=== PATIENT | female | born 1970 | race Caucasian/White ===

== ENCOUNTER 2016-06-29 19:55 | Emergency (ER) | payer MEDICAID ==
[2016-06-29 21:00] LABS: Basophils % (Auto) 0.9 % (0.0-1.8); Eosinophils % (Auto) 1.4 % (0.0-4.3); Mean Corpuscular HGB Conc 28 % (30-34); Platelet Count 173 K/mm3 (140-440); Red Blood Count 4.43 M/mm3 (3.65-5.03); White Blood Count 6.6 K/mm3 (4.5-11.0)
[2016-06-29 21:01] LABS: Blood Urea Nitrogen 12 mg/dL (7-17); Calcium 8.9 mg/dL (8.4-10.2); Carbon Dioxide 22 mmol/L (22-30); Glucose 166 mg/dL (65-100)
[2016-06-29 21:02] LABS: Anion Gap 20 mmol/L; Chloride 100.5 mmol/L (98-107); Potassium 4.5 mmol/L (3.6-5.0); Sodium 138 mmol/L (137-145)
[2016-06-29 21:05] LABS: Hematocrit 27.8 % (30.3-42.9); Hemoglobin 7.9 gm/dl (10.1-14.3); Mean Corpuscular Hemoglobin 18 pg (28-32); Mean Corpuscular Volume 63 fl (79-97)
[2016-06-29 21:06] LABS: Red Cell Distribution Width 20.4 % (13.2-15.2)
--- NOTE | 2016-06-29 23:19 | Cat Scan Report ---
FINAL REPORT PROCEDURE: CT HEAD/BRAIN WO CON TECHNIQUE: Computerized tomography of the head was performed without contrast material. HISTORY: Head trauma. Fall. Headache COMPARISON: No prior studies are available for comparison. FINDINGS: Skull and scalp: Normal. Paranasal sinuses: Normal. Ventricles and subarachnoid spaces: Normal. Cerebrum: No evidence of hemorrhage, acute infarction or mass . Cerebellum and brainstem: No evidence of hemorrhage, acute infarction or mass. Vasculature: Normal. Comments: Tiny punctate hyperdensities in the basal ganglia bilaterally are nonspecific but are most likely incidental physiologic calcifications. IMPRESSION: 1. Overall negative CT brain without contrast with no CT evidence of intracranial hemorrhage or edema or infarct or shift or acute finding. 2. Facial bone CT scan performed at same time as this study is dictated separately.
--- NOTE | 2016-06-29 23:33 | Cat Scan Report ---
FINAL REPORT PROCEDURE: CT FACIAL BONES WO CON TECHNIQUE: Computerized tomography of the facial bones and soft tissues with axial and coronal sections performed from the cranial aspect of the frontal sinuses to the caudal portion of the mandible without contrast material. HISTORY: Facial pain after trauma. Fall. COMPARISON: No prior studies are available for comparison. FINDINGS: Bones: No significant abnormality. Paranasal sinuses: Clear. Soft tissues: No significant abnormality. Other: None. IMPRESSION: 1. There is no CT evidence of facial bone fracture. 2. Brain CT scan performed at same time as this exam is dictated separately.
[2016-06-30] MEDS ORDERED: PERCOCET 5/325 PO ONE (01:59)
[2016-06-30] MEDS ORDERED: BOOSTRIX IM ONE (01:59)
--- NOTE | 2016-06-30 01:59 | Emergency Department Report ---
HPI - General Chief Complaint: Dizziness Time Seen by Provider: 06/30/16 01:21 - HPI HPI: This is a 45-year-old -[place] female presents to the emergency department via EMS with complaint of a syncopal episode and pain to the face and leg. Patient says she was grilling outside last night, Thursday, and started feeling dizzy and then blacked out. Patient fell onto a cement porch and hit the left side of her face and fell on top of her right leg. She is unsure how long she was unconscious. She thought that she would improve on her own and thus waited to come in until earlier this morning. Patient says she is able to ambulate but has pain to the right leg from the hip to the knee. She did not take anything for symptoms prior to presentation. She does not currently have a primary care doctor. No recent travel or sick contacts at home. She denies any illicit drug use or abuse. She has a past medical history of asthma, bipolar disorder. ED Past Medical Hx - Past Medical History Previous Medical History?: Yes Hx Psychiatric Treatment: Yes (BIPOLAR) Hx Asthma: Yes - Surgical History Past Surgical History?: Yes Additional Surgical History: gastric bypass, excess skin removal - Social History Smoking Status: Current Some Day Smoker - Medications Home Medications: Home Medications Medication Instructions Recorded Confirmed Last Taken Type Citalopram [celeXA] 20 mg PO QDAY 04/13/15 08/02/15 Unknown History traZODone [Desyrel] 150 mg PO QHS 04/13/15 08/02/15 Unknown History Ferrous Sulfate [Feosol 325 MG tab] 325 mg PO QDAY #30 tablet 04/14/15 08/02/15 Unknown Rx Cyclobenzaprine HCl [Flexeril 5 MG 5 mg PO Q8HR PRN #15 tablet 04/18/15 Unknown Rx TAB] Ibuprofen [Motrin 800 MG tab] 800 mg PO Q8HR PRN #30 tablet 04/18/15 08/02/15 Unknown Rx ALBUTEROL Inhaler [Proair] 2 puff IH QID PRN 08/02/15 08/02/15 Unknown History traMADol [Ultram 50 MG tab] 50 mg PO Q6HR PRN #15 tablet 06/30/16 Unknown Rx ED Review of Systems ROS: Stated complaint: RT LEG INJURY Other details as noted in HPI Comment: All other systems reviewed and negative Constitutional: denies: chills, fever Eyes: denies: eye pain, eye discharge, vision change ENT: denies: ear pain, throat pain Cardiovascular: denies: chest pain, palpitations Endocrine: no symptoms reported Gastrointestinal: denies: abdominal pain, nausea, diarrhea Genitourinary: denies: urgency, dysuria, discharge Musculoskeletal: arthralgia, myalgia. denies: back pain, joint swelling Skin: other (abrasions). denies: rash, lesions Neurological: denies: headache, weakness, paresthesias Physical Exam - Physical Exam Vital Signs: Vital Signs 06/29/16 06/29/16 06/30/16 20:05 23:49 01:25 Temperature 98.8 F 99.0 F 98 F Pulse Rate 105 H 87 86 Respiratory 18 18 18 Rate Blood Pressure 152/73 144/82 Blood Pressure 112/60 [Left] O2 Sat by Pulse 96 100 100 Oximetry Physical Exam: GENERAL: The patient is well-developed well-nourished. HEENT: Normocephalic. Extraocular motions are intact. Patient has moist mucous membranes. Pupils equal reactive to light bilaterally. No nystagmus. No drooling or trismus. No septal hematoma. NECK: Supple. Trachea is midline. Full range of motion. CHEST/LUNGS: Clear to auscultation. There is no respiratory distress noted. HEART/CARDIOVASCULAR: Regular. There is no tachycardia. There is no gallop rub or murmur. ABDOMEN: Abdomen is soft, nontender. Patient has normal bowel sounds. There is no abdominal distention. SKIN: Patient has a skin avulsion/abrasion to the left forehead. There is an abrasion just lateral to the left side of the nose. NEURO: The patient is awake, alert, and oriented. The patient is cooperative. The patient has no focal neurologic deficits. The patient has normal speech. Cranial nerves II through XII grossly intact. MUSCULOSKELETAL: Patient has some tenderness to palpation to the right hip, thigh and the right knee. Negative anterior and posterior drawer test the right knee. No laxity of valgus or varus stress the right knee. Patient has decreased range of motion of the right lower extremity secondary to pain. ED Course Vital Signs 06/29/16 06/29/16 06/30/16 20:05 23:49 01:25 Temperature 98.8 F 99.0 F 98 F Pulse Rate 105 H 87 86 Respiratory 18 18 18 Rate Blood Pressure 152/73 144/82 Blood Pressure 112/60 [Left] O2 Sat by Pulse 96 100 100 Oximetry ED Medical Decision Making - Lab Data Result diagrams: 06/29/16 20:32 06/29/16 20:32 - EKG Data -: EKG Interpreted by Me EKG shows normal: sinus rhythm, axis, intervals, QRS complexes, ST-T waves Rate: normal - EKG Data When compared to previous EKG there are: previous EKG unavailable Interpretation: normal EKG - Radiology Data Radiology results: report reviewed, image reviewed interpreted by me: X-ray of the right femur does not show any femoral fracture, dislocation, but there is one view of the patella seen with concern for a patellar fracture. CT of the head does not show any acute process including no hemorrhage, mass, shift, diffuse edema or skull fracture. CT facial bones does not show any fracture, dislocation or any acute process. - Medical Decision Making 45-year-old female presents after a syncopal episode 24 hours ago. She now presents with some left-sided facial pain and right lower extremity pain from the hip to the knee. Patient's labs are unremarkable. There is no etiology of the patient's soon-to-be found including a negative troponin, normal thyroid function, no signs of infection and normal electrolytes. CT of the head and facial bones does not show any acute process. X-ray of the right femur does not show any femoral abnormalities but there is concern for possible patellar fracture. Patient will be placed in a knee immobilizer and given crutches as well as an orthopedic referral. Vital signs are stable throughout ED course. Patient appears safe for discharge with this time. She'll return to the ER with any worsening of her symptoms or any acute distress. - Differential Diagnosis vasovagal, orthostatic hypotension, IA, fracture, dislocation Critical Care Time: No Critical care attestation.: If time is entered above; I have spent that time in minutes in the direct care of this critically ill patient, excluding procedure time. ED Disposition Clinical Impression: Right leg pain, Facial pain, Abrasion Right patella fracture Qualifiers: Encounter type: initial encounter Fracture type: closed Fracture morphology: unspecified fracture morphology Fracture alignment: nondisplaced Qualified Code( s): S82.001A - Unspecified fracture of right patella, initial encounter for closed fracture Syncope Qualifiers: Syncope type: unspecified Qualified Code(s): R55 - Syncope and collapse Disposition: DISCHARGED TO HOME OR SELFCARE Is pt being admited?: No Condition: Stable Instructions: Syncope (ED), Patellar Fracture (ED) Additional Instructions: Please follow-up with your primary care doctor in the next few days. I have concern, based on your x-ray, that you may have a fracture to your patella, the bone in the front of the right knee. He will be placed in a knee immobilizer and given crutches as well as a referral for an orthopedist. Follow-up with the orthopedist as soon as possible. Return to the emergency department with any worsening of your symptoms or any acute distress. Prescriptions: traMADol [Ultram 50 MG tab] 50 mg PO Q6HR PRN #15 tablet PRN Reason: Pain Referrals: PRIMARY CARE, [Primary Care Provider] - 3-5 Days ADOLPH BAKER MD [Staff Physician] - 3-5 Days Time of Disposition: 04:29
[2016-06-30] MEDS ORDERED: MORPHINE ONE (02:12)
[2016-06-30] MEDS ORDERED: PERCOCET 5/325 ONE (02:33)
[2016-06-30] MEDS ORDERED: MORPHINE IV ONE ×2 (02:43→03:45)
[2016-06-30 02:50] LABS: Creatine Kinase 328 units/L (30-135)
[2016-06-30 05:11] VITALS: BP 143/79
--- NOTE | 2016-06-30 09:07 | XRay Report ---
Right femur 3 views: History: Fall. Findings: No fracture, periosteal reaction or lytic lesion. Impression: No evidence of acute fracture.
== END 2016-06-30 05:09 | disposition home or self-care (01) ==
LOC: ED 19:55
DX: S82.001A Unspecified fracture of right patella, initial encounter for closed fracture (principal); R55 Syncope and collapse; R51 Headache; J45.909 Unspecified asthma, uncomplicated; F31.9 Bipolar disorder, unspecified; Y99.9 Unspecified external cause status; W18.30XA Fall on same level, unspecified, initial encounter; Y93.9 Activity, unspecified; Y92.9 Unspecified place or not applicable; F17.200 Nicotine dependence, unspecified, uncomplicated
CPT/HCPCS: 29505; 36415; 70450; 70486; 73552; 80048; 82550; 84443; 84484; 85025; 90715; 93005; 93010; 96374; 96376; 99285; J2270

== ENCOUNTER 2016-07-14 00:45 | Emergency (ER) | payer MEDICAID ==
[2016-07-14 03:38] LABS: Hematocrit 26.4 % (30.3-42.9); Hemoglobin 7.3 gm/dl (10.1-14.3); Mean Corpuscular HGB Conc 28 % (30-34); Mean Corpuscular Hemoglobin 18 pg (28-32); Mean Corpuscular Volume 64 fl (79-97); Platelet Count 279 K/mm3 (140-440); Red Blood Count 4.14 M/mm3 (3.65-5.03); Red Cell Distribution Width 21.6 % (13.2-15.2); White Blood Count 4.9 K/mm3 (4.5-11.0)
[2016-07-14 03:54] LABS: Anion Gap 16 mmol/L; BUN/Creatinine Ratio 13.75; Blood Urea Nitrogen 11 mg/dL (7-17); Calcium 8.6 mg/dL (8.4-10.2); Carbon Dioxide 25 mmol/L (22-30); Chloride 102.4 mmol/L (98-107); Glucose 90 mg/dL (65-100); Potassium 3.5 mmol/L (3.6-5.0); Sodium 140 mmol/L (137-145)
[2016-07-14 09:02] LABS: Bilirubin,Urine NEG (Negative); Blood,Urine NEG (Negative); Ketones,Urine NEG (Negative); Leukocyte Esterase,Urine NEG (Negative); Mucus,Urine FEW /HPF; Nitrite,Urine NEG (Negative); Protein,Urine <15 mg/dL mg/dL (Negative); WBC,Urine < 1.0 /HPF (0.0-6.0)
[2016-07-14] MEDS ORDERED: NORCO 5/325 PO ONE (09:54)
--- NOTE | 2016-07-14 09:58 | Emergency Department Report ---
ED Extremity Problem HPI - General Chief complaint: Extremity Problem,Nontraumatic Stated complaint: LEFT LEG/LOWER BACK PAIN Time Seen by Provider: 07/14/16 09:47 Source: patient Mode of arrival: Ambulatory Limitations: No Limitations - History of Present Illness Initial comments: 45-year-old female presents to the emergency department complaining of left leg pain and swelling for the past 2 days. Patient denies injury. Patient describes an aching pain in her left leg that radiates into her left lower back. Patient reports a history of a blood clot in the left leg that was diagnosed approximately one year ago. Patient states that she was started on Eliquis and is continuing to take this medication at this time. She denies chest pain or difficulty breathing. There are no other complaints. MD Complaint: extremity pain, extremity swelling -: Gradual, days(s) (2) Location: left, lower extremity History of Same: Yes Radiation: proximal Severity scale (0 -10): 3 Quality: aching Consistency: constant Improves with: nothing Worsens with: nothing Associated Symptoms: denies other symptoms - Related Data Home Medications Medication Instructions Recorded Confirmed Last Taken Citalopram [celeXA] 20 mg PO QDAY 04/13/15 07/14/16 Unknown traZODone [Desyrel] 150 mg PO QHS 04/13/15 07/14/16 Unknown ALBUTEROL Inhaler [Proair] 2 puff IH QID PRN 08/02/15 07/14/16 Unknown Previous Rx's Medication Instructions Recorded Last Taken Type Ferrous Sulfate [Feosol 325 MG tab] 325 mg PO QDAY #30 tablet 04/14/15 Unknown Rx Cyclobenzaprine HCl [Flexeril 5 MG 5 mg PO Q8HR PRN #15 tablet 04/18/15 Unknown Rx TAB] Ibuprofen [Motrin 800 MG tab] 800 mg PO Q8HR PRN #30 tablet 04/18/15 Unknown Rx traMADol [Ultram 50 MG tab] 50 mg PO Q6HR PRN #15 tablet 06/30/16 Unknown Rx Acetaminophen with Codeine 1 tab PO Q6HR PRN #30 tab 07/14/16 Unknown Rx [Acetaminophen-Codeine #4 TAB] Allergies Allergy/AdvReac Type Severity Reaction Status Date / Time morphine Allergy Rash Verified 07/14/16 02:42 Penicillins AdvReac Unknown Verified 04/13/15 23:10 ED Review of Systems ROS: Stated complaint: LEFT LEG/LOWER BACK PAIN Other details as noted in HPI Comment: All other systems reviewed and negative Musculoskeletal: as per HPI, back pain ED Past Medical Hx - Past Medical History Previous Medical History?: Yes Hx Deep Vein Thrombosis: Yes (Blood clot left leg January 2016) Hx Psychiatric Treatment: Yes (BIPOLAR) Hx Asthma: Yes - Surgical History Past Surgical History?: Yes Additional Surgical History: gastric bypass, excess skin removal - Family History Family history: no significant - Social History Smoking Status: Current Every Day Smoker Substance Use Type: None - Medications Home Medications: Home Medications Medication Instructions Recorded Confirmed Last Taken Type Citalopram [celeXA] 20 mg PO QDAY 04/13/15 07/14/16 Unknown History traZODone [Desyrel] 150 mg PO QHS 04/13/15 07/14/16 Unknown History Ferrous Sulfate [Feosol 325 MG tab] 325 mg PO QDAY #30 tablet 04/14/15 07/14/16 Unknown Rx Cyclobenzaprine HCl [Flexeril 5 MG 5 mg PO Q8HR PRN #15 tablet 04/18/15 Unknown Rx TAB] Ibuprofen [Motrin 800 MG tab] 800 mg PO Q8HR PRN #30 tablet 04/18/15 07/14/16 Unknown Rx ALBUTEROL Inhaler [Proair] 2 puff IH QID PRN 08/02/15 07/14/16 Unknown History traMADol [Ultram 50 MG tab] 50 mg PO Q6HR PRN #15 tablet 06/30/16 07/14/16 Unknown Rx Acetaminophen with Codeine 1 tab PO Q6HR PRN #30 tab 07/14/16 Unknown Rx [Acetaminophen-Codeine #4 TAB] ED Physical Exam - General Limitations: No Limitations General appearance: alert, in no apparent distress, obese - Head Head exam: Present: atraumatic, normocephalic - Eye Eye exam: Present: normal appearance, PERRL, EOMI - ENT ENT exam: Present: normal exam, normal orophraynx, mucous membranes moist - Neck Neck exam: Present: normal inspection, full ROM. Absent: tenderness - Respiratory Respiratory exam: Present: normal lung sounds bilaterally. Absent: respiratory distress - Cardiovascular Cardiovascular Exam: Present: regular rate, normal rhythm, normal heart sounds - GI/Abdominal GI/Abdominal exam: Present: soft, normal bowel sounds. Absent: distended, tenderness - Extremities Exam Extremities exam: Present: normal inspection, full ROM, calf tenderness (left), other (no definite edema noted. No erythema.) - Back Exam Back exam: Present: normal inspection, full ROM. Absent: tenderness - Neurological Exam Neurological exam: Present: alert, oriented X3. Absent: motor sensory deficit - Skin Skin exam: Present: warm, dry, intact ED Course Vital Signs 07/14/16 07/14/16 07/14/16 02:43 08:30 08:53 Temperature 98.4 F Pulse Rate 78 66 Respiratory 18 16 Rate Blood Pressure 123/67 Blood Pressure 114/60 [Left] O2 Sat by Pulse 98 99 99 Oximetry 07/14/16 08:54 Temperature Pulse Rate Respiratory 16 Rate Blood Pressure Blood Pressure [Left] O2 Sat by Pulse 99 Oximetry ED Medical Decision Making - Lab Data Result diagrams: 07/14/16 03:12 07/14/16 03:12 - Radiology Data Radiology results: image reviewed Doppler ultrasound of the left lower extremity reveals no evidence of acute DVT. - Medical Decision Making Lab and imaging results reviewed and discussed with the patient. Patient reports feeling better with medication. Patient will be discharged home at this time. - Differential Diagnosis leg pain, DVT Critical care attestation.: If time is entered above; I have spent that time in minutes in the direct care of this critically ill patient, excluding procedure time. ED Disposition Clinical Impression: Left leg pain Disposition: DISCHARGED TO HOME OR SELFCARE Is pt being admited?: No Condition: Stable Instructions: Arthralgia (ED) Prescriptions: Acetaminophen with Codeine [Acetaminophen-Codeine #4 TAB] 1 tab PO Q6HR PRN #30 tab PRN Reason: Pain Referrals: JAMEEL HAWKINS NP-C [Primary Care Provider] - 3-5 Days Time of Disposition: 13:26
[2016-07-14] MEDS ORDERED: DILAUDID ONE (12:37)
[2016-07-14] MEDS ORDERED: DILAUDID IM ONE (12:46)
[2016-07-14 13:39] VITALS: BP 132/47
== END 2016-07-14 13:39 | disposition home or self-care (01) ==
LOC: ED 00:45
DX: M79.605 Pain in left leg (principal); J45.909 Unspecified asthma, uncomplicated; F31.9 Bipolar disorder, unspecified; F17.200 Nicotine dependence, unspecified, uncomplicated; Z86.718 Personal history of other venous thrombosis and embolism; Z88.0 Allergy status to penicillin; Z88.5 Allergy status to narcotic agent
CPT/HCPCS: 36415; 80048; 81001; 81025; 85027; 93971; 96372; 99284; J1170

== ENCOUNTER 2016-07-21 00:59 | Emergency (ER) | payer MEDICAID ==
[2016-07-21] MEDS ORDERED: NACL 0.9% 1000 ML 1,000 ML IV ONE (02:08)
[2016-07-21 02:54] LABS: INR 1.09 (0.87-1.13)
[2016-07-21 02:55] LABS: Partial Thromboplastin Time 32.2 Sec. (24.2-36.6)
[2016-07-21 03:03] LABS: Alanine Aminotransferase 12 units/L (7-56); Albumin 3.6 g/dL (3.9-5); Alkaline Phosphatase 55 units/L (35-129); Anion Gap 16 mmol/L; BUN/Creatinine Ratio 23.33; Bilirubin,Total 0.2 mg/dL (0.1-1.2); Blood Urea Nitrogen 14 mg/dL (7-17); Calcium 8.8 mg/dL (8.4-10.2); Carbon Dioxide 25 mmol/L (22-30); Glucose 94 mg/dL (65-100); Lipase 37 units/L (13-60); Potassium 4.4 mmol/L (3.6-5.0); Sodium 142 mmol/L (137-145); Total Protein 7.2 g/dL (6.3-8.2)
[2016-07-21 03:34] LABS: Bilirubin,Urine NEG (Negative); Blood,Urine NEG (Negative); Ketones,Urine NEG (Negative); Leukocyte Esterase,Urine NEG (Negative); Mucus,Urine FEW /HPF; Nitrite,Urine NEG (Negative); Protein,Urine <15 mg/dL mg/dL (Negative); RBC,Urine < 1.0 /HPF (0.0-6.0); WBC,Urine < 1.0 /HPF (0.0-6.0)
[2016-07-21 03:38] LABS: Basophils % (Auto) 1.4 % (0.0-1.8); Eosinophils % (Auto) 2.5 % (0.0-4.3); Mean Corpuscular HGB Conc 28 % (30-34); Platelet Count 200 K/mm3 (140-440); Red Blood Count 4.23 M/mm3 (3.65-5.03); White Blood Count 3.9 K/mm3 (4.5-11.0)
[2016-07-21 03:48] LABS: Hematocrit 26.9 % (30.3-42.9); Hemoglobin 7.5 gm/dl (10.1-14.3); Mean Corpuscular Volume 64 fl (79-97)
[2016-07-21 03:49] LABS: Mean Corpuscular Hemoglobin 18 pg (28-32); Red Cell Distribution Width 20.8 % (13.2-15.2)
[2016-07-21] MEDS ORDERED: NORCO 5/325 PO ONE ×2 (08:03→12:08)
--- NOTE | 2016-07-21 08:05 | Emergency Department Report ---
HPI - General Chief Complaint: GI Bleed Time Seen by Provider: 07/21/16 07:44 - HPI HPI: This is a 45-year-old Afro[place] female presents to the emergency department by EMS from home with complaint of a 2 day history of nausea, vomiting and blood in the emesis. The patient says that she had about 1-2 episodes of vomiting each day. She has some generalized abdominal discomfort with it. She denies any fever, back pain, vaginal bleeding, rectal bleeding, discharge or dysuria. She is not taken anything for symptoms prior to presentation. She has a history of iron deficiency anemia, previous DVT on Eloquist, asthma, bipolar disorder and a previous surgical history of gastric bypass and excessive skin removal. She has not seen her primary care doctor regarding her symptoms. No recent travel or sick contacts at home. ED Past Medical Hx - Past Medical History Previous Medical History?: Yes Hx Deep Vein Thrombosis: Yes (Blood clot left leg January 2016) Hx Psychiatric Treatment: Yes (BIPOLAR) Hx Asthma: Yes - Surgical History Past Surgical History?: Yes Additional Surgical History: gastric bypass, excess skin removal - Social History Smoking Status: Current Every Day Smoker Substance Use Type: None - Medications Home Medications: Home Medications Medication Instructions Recorded Confirmed Last Taken Type traZODone [Desyrel] 150 mg PO QHS 04/13/15 07/21/16 1 Day Ago History ALBUTEROL Inhaler [Proair] 2 puff IH QID PRN 08/02/15 07/21/16 1 Day Ago History Acetaminophen with Codeine 1 tab PO Q6HR PRN #30 tab 07/14/16 07/21/16 1 Day Ago Rx [Acetaminophen-Codeine #4 TAB] Famotidine [Pepcid] 20 mg PO BID #20 tablet 07/21/16 Unknown Rx Ondansetron [Zofran Odt] 4 mg PO Q8H PRN #10 tab.rapdis 07/21/16 Unknown Rx traMADol [Ultram] 50 mg PO Q6HR PRN #10 tablet 07/21/16 Unknown Rx ED Review of Systems ROS: Stated complaint: N/V Other details as noted in HPI Comment: All other systems reviewed and negative Constitutional: denies: chills, fever Eyes: denies: eye pain, eye discharge, vision change ENT: denies: ear pain, throat pain Respiratory: denies: cough, shortness of breath, wheezing Cardiovascular: denies: chest pain, palpitations Gastrointestinal: abdominal pain, nausea, vomiting, hematemesis Genitourinary: denies: urgency, dysuria, discharge Musculoskeletal: denies: back pain, joint swelling, arthralgia Skin: denies: rash, lesions Neurological: denies: headache, weakness, paresthesias Physical Exam - Physical Exam Vital Signs: Vital Signs 07/21/16 02:03 Temperature 98.4 F Pulse Rate 72 Respiratory 18 Rate Blood Pressure 131/61 O2 Sat by Pulse 98 Oximetry Physical Exam: GENERAL: The patient is well-developed well-nourished. HEENT: Normocephalic. Atraumatic. Extraocular motions are intact. Patient has moist mucous membranes. Pupils equal reactive to light bilaterally. NECK: Supple. Trachea is midline. CHEST/LUNGS: Clear to auscultation. There is no respiratory distress noted. HEART/CARDIOVASCULAR: Regular. There is no tachycardia. There is no gallop rub or murmur. ABDOMEN: Abdomen is soft. Generalized mild tenderness to palpation of the abdomen. No guarding or rebound tenderness. Patient has normal bowel sounds. There is no abdominal distention. SKIN: Skin is warm and dry. NEURO: The patient is awake, alert, and oriented. The patient is cooperative. The patient has no focal neurologic deficits. The patient has normal speech. MUSCULOSKELETAL: There is no tenderness or deformity. There is no limitation range of motion. There is no evidence of acute injury. ED Course Vital Signs 07/21/16 02:03 Temperature 98.4 F Pulse Rate 72 Respiratory 18 Rate Blood Pressure 131/61 O2 Sat by Pulse 98 Oximetry ED Medical Decision Making - Lab Data Result diagrams: 07/21/16 02:17 07/21/16 02:17 - Radiology Data Radiology results: report reviewed, image reviewed interpreted by me: Abdominal x-ray shows some nonspecific nonobstructive bowel gas. CT of the abdomen and pelvis with IV contrast does not show any acute process. - Medical Decision Making 45-year-old female presents the emergency department with a complaint of 2 days of hematemesis that occurred with one episode of vomiting each day as well as some generalized abdominal discomfort. Patient's labs are mostly unremarkable except for the anemia. However the patient was here 4 days ago and her hemoglobin level is higher than that. On top of that, the patient has a history of iron deficiency anemia. The rest of her labs are unremarkable including the belly labs which do not show any elevation in bilirubin, lipase or LFTs. Urinalysis does not show any UTI the patient is not . Abdominal x-ray was done that does not show any acute process. A CT of the abdomen and pelvis with IV contrast was also done due to her complaint of significant discomfort but it also did not show any acute abnormalities. There is been no further nausea or vomiting in the emergency department. The patient appears stable. She was discharged home with Pepcid, pain medication and Zofran ODT for nausea. She was given referrals for GI as she may need some type of endoscopy or further evaluation of the future. She has been encouraged to return to the emergency department with any worsening of her symptoms or any acute distress. - Differential Diagnosis gastritis, colitis, diverticulitis, esophageal varices Critical Care Time: No Critical care attestation.: If time is entered above; I have spent that time in minutes in the direct care of this critically ill patient, excluding procedure time. ED Disposition Clinical Impression: Hematemesis Qualifiers: Nausea presence: with nausea Qualified Code(s): K92.0 - Hematemesis; R11.0 - Nausea Nausea & vomiting Qualifiers: Vomiting type: unspecified Vomiting Intractability: non-intractable Qualified Code(s): R11.2 - Nausea with vomiting, unspecified Abdominal pain Qualifiers: Abdominal location: generalized Qualified Code(s): R10.84 - Generalized abdominal pain Disposition: DISCHARGED TO HOME OR SELFCARE Is pt being admited?: No Condition: Stable Instructions: Acute Nausea and Vomiting (ED), Acute Abdominal Pain (ED) Additional Instructions: Please follow-up with a primary care doctor in the next few days. I referral for a local commercial underwriter, Dr. Henry, to follow up regarding your abdominal discomfort and blood seen in the vomit. Return to the emergency department with any worsening of your symptoms or any acute distress. Prescriptions: Famotidine [Pepcid] 20 mg PO BID #20 tablet Ondansetron [Zofran Odt] 4 mg PO Q8H PRN #10 tab.rapdis PRN Reason: Nausea traMADol [Ultram] 50 mg PO Q6HR PRN #10 tablet PRN Reason: Pain Referrals: PRIMARY CARE, [Primary Care Provider] - 3-5 Days IRLANDA HENRY MD [Staff Physician] - 3-5 Days Forms: Accompanied Note Time of Disposition: 10:08
--- NOTE | 2016-07-21 08:32 | Admit Criteria Form ---
Admission Criteria Documentation: GASTROINTESTINAL BLEEDING Clinical Indications for Inpatient Care (Place 'X' for any and all applicable criteria): Ongoing inpatient care may be indicated for gastrointestinal bleeding with ANY ONE of the following (4)(20)(21)(22)(23)(24): [ ]I. Active bleeding (eg, fresh voluminous blood in emesis or nasogastric aspirate, or per rectum) [ ]II. Hemodynamic instability [ ]III. Anticoagulation therapy or coagulopathy ((eg, advanced liver disease, irreversible anticoagulation) [ ]IV. Ischemic colitis (22) [ ]V. Endoscopy showing arterial bleeding, adherent clot, nonbleeding visible vessel, varices, flat red spots, ulcer size greater than 2 cm, or portal hypertensive gastropathy [ ]. High-risk low platelet count [ ]VII. Anemia requiring inpatient care as indicated by ANY ONE of the following a)[ ] Cognitive impairment b)[ ] Syncope c)[ ] Heart failure d)[ ] Chest pain e)[ ] Dyspnea f)[ ] Other findings suggesting inadequate perfusion (eg, peripheral or myocardial ischemia, end organ dysfunction) [ ]VIII. High-risk low platelet count [ ]IX. Suspected variceal cause of bleeding as indicated by ANY ONE of the following(27)(28): a)[ ] Known varices b)[ ] Hepatomegaly or splenomegaly c)[ ] Ascites d)[ ] Jaundice or scleral icterus e)[ ] History of liver disease (eg, cirrhosis) f)[ ] Physical findings of portal hypertension (eg, caput medusa) g)[ ] Comorbid disorder indicating risk for portal vein thrombosis (eg , abdominal surgery, sepsis, shock, exchange transfusion, prior umbilical vein catheterization) Extended stay may be needed until ALL of the following are present(20)(38)(47): [ ]a) Hemodynamic stability [ ]b) No evidence of active bleeding (eg, stable Hematocrit) [ ]c) Platelet count, prothrombin time, and partial thromboplastin time acceptable for next level of care [ ]d) Surgical or other acute intervention not needed [ ]e) Oral hydration and diet tolerated The original [facility] content created by Agustin Soto has been revised. The portions of the content which have been revised are identified through the use of italic text or in bold, and Agustin Soto has neither reviewed nor approved the modified material. All other unmodified content is copyright [facility]. Please see references footnoted in the original [facility] edition 2016
[2016-07-21] MEDS ORDERED: NACL ONE (10:10)
--- NOTE | 2016-07-21 10:49 | XRay Report ---
ABDOMEN, 2 views: History: Abdominal pain. There is no evidence of free air beneath the diaphragms. The gas pattern within the abdomen is unremarkable. There is no evidence of bowel dilatation, significant air-fluid levels, or pathologic calcifications. Organ shadows are unremarkable. IMPRESSION: Unremarkable abdomen.
[2016-07-21] MEDS ORDERED: NACL 0.9% 1000 ML 1,000 ML ONE (11:07)
--- NOTE | 2016-07-21 11:17 | Cat Scan Report ---
CT ABDOMEN AND PELVIS WITH CONTRAST INDICATION: Abdominal pain. COMPARISON: 08/02/2015. FINDINGS: Abdomen and pelvis CT performed following intravenous administration of 100 cc of Omnipaque 300. LUNG BASES: Mild nonspecific distal esophageal wall thickening, not excluded for gastroesophageal reflux and/or hiatal hernia, amongst others. ABDOMEN: Approximately 2.5 cm left upper renal cyst, gastric bypass changes and small bowel anastomosis in the left hemiabdomen again noted. Some streak artifact. Liver, spleen, gallbladder, pancreas, adrenals, aorta, IVC and kidneys otherwise within normal limits. No ascites or significant adenopathy. Nonopacified GI tract evaluation limited, though grossly nonobstructive. Colon unremarkable. PELVIS: Uterus again noted in the right hemipelvis with now grossly unremarkable adnexa. Unremarkable urinary bladder. Rectosigmoid stool. No free fluid or significant adenopathy. Mild levoscoliosis apex about L4-L5. Multilevel spinal degenerative changes, including lower lumbar disc narrowing, spurring and suspected L4-L5 neural foraminal narrowing. Predominantly right-sided lower thoracic spine osteophytes also seen. Bilateral SI joint degenerative changes with sclerosis inferiorly and spurring. CONCLUSION: No acute CT abnormality with various incidental findings, as above. Thank you for the opportunity to participate in this patient's care.
[2016-07-21 12:25] VITALS: BP 102/62
== END 2016-07-21 12:25 | disposition home or self-care (01) ==
LOC: ED 00:59
DX: K92.0 Hematemesis (principal); R11.2 Nausea with vomiting, unspecified; R10.84 Generalized abdominal pain; F31.9 Bipolar disorder, unspecified; J45.909 Unspecified asthma, uncomplicated; F17.200 Nicotine dependence, unspecified, uncomplicated; Z86.718 Personal history of other venous thrombosis and embolism
CPT/HCPCS: 36415; 74020; 74177; 80053; 81001; 81025; 83690; 85025; 85610; 85730; 86850; 86900; 86901; 93005; 93010; 96360; 99285; J7030; Q9967

== ENCOUNTER 2017-08-26 14:13 | Inpatient (IN) | payer MEDICAID ==
[2017-08-26] MEDS ORDERED: ZOFRAN IV PRN (14:53)
[2017-08-26] MEDS ORDERED: SODIUM CHLORIDE FLUSH SYRINGE 10 ML IV PRN (14:53)
[2017-08-26] MEDS ORDERED: TYLENOL PO PRN (14:53)
--- NOTE | 2017-08-26 14:53 | History and Physical Report ---
History of Present Illness Chief complaint: I feel sick History of present illness: 46 YO Female with Obesity, Asthma, Bipolar, Nicotine Dependence, LLE DVT not currently on anticoagulation admitted to Medical Stabilization Unit for ETOH withdrawl and medical stabilization. Pt states that she drinks dark liquor, and beer daily. Pt states that he last drink was 24 hours ago. Pt acknowledges feeling restless, nauseated, anxious, shaking, and feeling like her heart is beating fast. Pt also acknowledges abdominal discomfort. Pt denies fever, chills , CP, syncope, trauma, productive cough, or recent ill contacts. Pt seen and evaluated upon arrival and found to have Alcohol withdrawl. Pt admitted to MSU and initiated on ETOH withdrawl protocol. Past History Past Medical History: DVT, other (Obesity, asthma, ) Past Surgical History: Other (gastric bypass) Social history: smoking Family history: hypertension Medications and Allergies Allergies Allergy/AdvReac Type Severity Reaction Status Date / Time morphine Allergy Rash Verified 07/14/16 02:42 Penicillins AdvReac Unknown Verified 04/13/15 23:10 Home Medications Medication Instructions Recorded Confirmed Last Taken Type traZODone [Desyrel] 50 mg PO QHS 04/13/15 08/26/17 08/23/17 History 50 mg Citalopram [celeXA] 20 mg PO QDAY 08/26/17 08/26/17 08/23/17 History 20 mg Review of Systems Constitutional: no weight loss, no weight gain, no fever, no chills Ears, nose, mouth and throat: no ear pain, no ear discharge, no tinnitis, no decreased hearing, no nose pain, no nasal congestion Breasts: no change in shape, no swelling, no mass Cardiovascular: no chest pain, no orthopnea, no palpitations, no rapid/ irregular heart beat, no edema Respiratory: no cough, no cough with sputum, no excessive sputum, no hemoptysis Gastrointestinal: nausea Genitourinary Female: no pelvic pain, no flank pain, no menorrhagia, no dysuria , no urinary frequency, no urgency Rectal: no pain, no incontinence, no bleeding Musculoskeletal: no neck pain, no shooting arm pain, no arm numbness/tingling, no low back pain, no shooting leg pain, no leg numbness/tingling Integumentary: no rash, no pruritis, no redness, no sores, no wounds Neurological: no head injury, no transient paralysis, no paralysis, no weakness , no parathesias, no numbness, no tingling, no seizures, no syncope Psychiatric: anxiety, sleep disturbances, insomnia, irritability, no change in appetite, no suicidal ideation, no disorientation, no anhedonia Endocrine: no cold intolerance, no heat intolerance, no polyphagia, no excessive thirst, no polydipsia, no polyuria, no nocturia Hematologic/Lymphatic: no easy bruising, no easy bleeding, no lymphadenopathy, no lymphedema Allergic/Immunologic: no urticaria, no allergic rhinitis, no wheezing, no anaphylaxis Exam - Constitutional General appearance: Present: mild distress, obese, disheveled - EENT Eyes: Present: PERRL ENT: hearing intact, clear oral mucosa - Neck Neck: Present: supple, normal ROM - Respiratory Respiratory effort: normal Respiratory: bilateral: CTA - Cardiovascular Rhythm: other (tachycardia) Heart Sounds: Present: S1 & S2. Absent: rub, click - Extremities Extremities: pulses symmetrical, No edema Peripheral Pulses: within normal limits - Abdominal General gastrointestinal: Present: soft, non-tender, non-distended, normal bowel sounds Female genitourinary: Present: normal - Integumentary Integumentary: Present: clear, warm, dry - Musculoskeletal Musculoskeletal: gait normal, strength equal bilaterally - Psychiatric Psychiatric: appropriate mood/affect, intact judgment & insight - Neurologic Neurologic: CNII-XII intact, moves all extremities Assessment and Plan - Patient Problems (1) Alcohol withdrawal Current Visit: Yes Status: Acute Qualifiers: Complication of substance-induced condition: with perceptual disturbance Qualified Code(s): F10.232 - Alcohol dependence with withdrawal with perceptual disturbance Plan to address problem: Admit to MSU, Ativan taper, IVF resuscitation, IV banana bag, cbc, cmp, (2) Nicotine dependence with withdrawal Current Visit: Yes Status: Acute Qualifiers: Nicotine product type: cigarettes Qualified Code(s): F17.213 - Nicotine dependence, cigarettes, with withdrawal Plan to address problem: supportive care, pt declines to pick quit date, smoking cessation counseling. (3) Bipolar 1 disorder Current Visit: Yes Status: Acute Plan to address problem: supportive care. continue current therapy, (4) Abdominal pain Current Visit: Yes Status: Acute Qualifiers: Abdominal location: generalized Qualified Code(s): R10.84 - Generalized abdominal pain Plan to address problem: suspected secondary to ETOH gastritis, CT ABdomen pelvis. (5) DVT prophylaxis Current Visit: Yes Status: Acute Plan to address problem: scd to ble while in bed
[2017-08-26] MEDS ORDERED: VISTARIL PO PRN (14:56)
[2017-08-26] MEDS ORDERED: VITAMIN B-1 100 MG, FOLVITE 1 MG, INFUVITE 10 ML in NACL 0.9% 1000 ML 2,000 ML IV ONE (15:01)
[2017-08-26] MEDS ORDERED: ZOFRAN ODT PO PRN (15:01)
[2017-08-26] MEDS ORDERED: PROAIR IH PRN (15:01)
[2017-08-26] MEDS ORDERED: PROVENTIL IH PRN (18:13)
[2017-08-26] MEDS: ATIVAN IV PRN ×3 (18:29→22:23)
[2017-08-26] MEDS: ATIVAN PO SCH (20:37)
[2017-08-26] MEDS: PEPCID PO SCH (22:24)
[2017-08-26] MEDS: DESYREL PO SCH (22:24)
[2017-08-26] MEDS: SODIUM CHLORIDE FLUSH SYRINGE 10 ML IV SCH (22:24)
[2017-08-27] MEDS: ATIVAN PO SCH ×3 (02:48→14:53)
[2017-08-27] MEDS: SODIUM CHLORIDE FLUSH SYRINGE 10 ML IV SCH ×2 (09:47→22:41)
[2017-08-27] MEDS: PEPCID PO SCH ×2 (09:51→22:41)
[2017-08-27] MEDS: celeXA PO SCH (09:52)
--- NOTE | 2017-08-27 10:18 | Progress Note ---
Assessment and Plan Assessment and plan: 46 YO Female with Obesity, Asthma, Bipolar, Nicotine Dependence, LLE DVT not currently on anticoagulation admitted to Medical Stabilization Unit for ETOH withdrawl and medical stabilization. Pt states that she drinks dark liquor, and beer daily. Pt states that he last drink was 24 hours ago. Pt acknowledges feeling restless, nauseated, anxious, shaking, and feeling like her heart is beating fast. Pt also acknowledges abdominal discomfort. Pt denies fever, chills , CP, syncope, trauma, productive cough, or recent ill contacts. Pt seen and evaluated upon arrival and found to have Alcohol withdrawl. Pt admitted to MSU and initiated on ETOH withdrawl protocol. (1) Acute Alcohol withdrawal Continue MSU stay and protocol, Ativan taper, IVF resuscitation, IV banana bag, cbc, cmp, (2) Nicotine dependence with withdrawal supportive care, pt declines to pick quit date, smoking cessation counseling. (3) Bipolar 1 disorder supportive care. continue current therapy, (4) Microcytic Anemia iron supplementation. Patient has planned outpatient colonoscopy for screening. (5)Abdominal pain/chronic pain syndrome suspected secondary to ETOH gastritis, C Per patient recent CT abdmen-negative very agitated and not agreeable to examination Diffuse abdominal pain on limited exam, states "its been a long time" but not willing to quantify, when asked longer than 1 year she said shorter, is currently under treatment with a physician and is planned for colonoscopy. She said percocet did not help and she quit taking it. (6) Morbid Obesity WEIGHTLOSS COUNSELLING PROVIDED 15 MINS SPENT. PT verablized understanding (7)DVT prophylaxis Current Visit: Yes Status: Acute Plan to address problem: scd to ble while in bed History Interval history: Patient seen and examined, still complaining of abdominal pain. The patient presented to [facility] for initiation of treatment for acute alcohol withdrawal. This morning she still complains of nasuea, anxous, some tremeor and restlessness, although with some noted improvement. she remains alert and oriented. Hospitalist Physical - Physical exam Narrative exam: - Constitutional General appearance: Present: mild distress, obese, disheveled - EENT Eyes: Present: PERRL ENT: hearing intact, clear oral mucosa - Neck Neck: Present: supple, normal ROM - Respiratory Respiratory effort: normal Respiratory: bilateral: CTA - Cardiovascular Rhythm: other (tachycardia) Heart Sounds: Present: S1 & S2. Absent: rub, click - Extremities Extremities: pulses symmetrical, No edema Peripheral Pulses: within normal limits - Abdominal General gastrointestinal: Present: soft, diffused tender, non-distended, normal bowel sounds Female genitourinary: Present: normal - Integumentary Integumentary: Present: clear, warm, dry - Musculoskeletal Musculoskeletal: gait normal, strength equal bilaterally - Psychiatric Psychiatric: appropriate mood/affect, intact judgment & insight - Neurologic Neurologic: CNII-XII intact, moves all extremities - Constitutional Vitals: Temp Pulse Resp BP Pulse Ox 97.8 F 72 20 101/46 94 08/27/17 08:14 08/27/17 08:14 08/27/17 08:14 08/27/17 08:14 08/27/17 08:14 General appearance: Present: mild distress, obese, disheveled Results - Labs CBC & Chem 7: 08/27/17 10:06 08/27/17 10:06
[2017-08-27 10:34] LABS: Mean Corpuscular HGB Conc 29 % (30-34); Platelet Count 277 K/mm3 (140-440); Red Blood Count 4.27 M/mm3 (3.65-5.03)
[2017-08-27 10:43] LABS: Hematocrit 28.3 % (30.3-42.9); Hemoglobin 8.3 gm/dl (10.1-14.3); Mean Corpuscular Hemoglobin 19 pg (28-32); Mean Corpuscular Volume 66 fl (79-97); Red Cell Distribution Width 25.3 % (13.2-15.2)
[2017-08-27 10:58] LABS: Alanine Aminotransferase 10 units/L (7-56); Albumin 3.5 g/dL (3.9-5); BUN/Creatinine Ratio 20; Blood Urea Nitrogen 12 mg/dL (7-17); Calcium 8.3 mg/dL (8.4-10.2); Hemolysis Index 12
[2017-08-27 13:10] LABS: Anisocytosis 2+; Total Cells Counted 100
[2017-08-27 13:11] LABS: Hypochromasia 2+; Platelet Estimate Cons
[2017-08-27] MEDS ORDERED: ULTRAM PO PRN (13:15)
[2017-08-27] MEDS ORDERED: ATIVAN PO SCH (14:59)
[2017-08-27] MEDS: DESYREL PO SCH (22:41)
[2017-08-28 08:27] VITALS: BP 90/37
--- NOTE | 2017-08-28 09:18 | Discharge Summary ---
Providers - Providers Date of Admission: 08/26/17 15:36 Attending physician: GIOVANNY BRITO MD Primary care physician: [employer] Hospitalization Hospital course: 46 YO Female with Obesity, Asthma, Bipolar, Nicotine Dependence, LLE DVT not currently on anticoagulation admitted to Medical Stabilization Unit for ETOH withdrawl and medical stabilization. Pt states that she drinks dark liquor, and beer daily. Pt states that he last drink was 24 hours ago. Pt acknowledges feeling restless, nauseated, anxious, shaking, and feeling like her heart is beating fast. Pt also acknowledges abdominal discomfort. Pt denies fever, chills , CP, syncope, trauma, productive cough, or recent ill contacts. Pt seen and evaluated upon arrival and found to have Alcohol withdrawl. Pt admitted to MSU and initiated on ETOH withdrawl protocol. Patient this am does not demonstrate any further withdrawal symptoms. she also unfortunately has been smoking in the room despite multiple warnings against the same. The odor is quit pervasive on entering her room this morning to me. Continue management based on outpatient recommendation and discharge plan by the team has been discussed with the patient and she verbalized understanding (1) Acute Alcohol withdrawal Continue MSU stay and protocol, Ativan taper, IVF resuscitation, IV banana bag, cbc, cmp, (2) Nicotine dependence with withdrawal supportive care, pt declines to pick quit date, smoking cessation counseling. (3) Bipolar 1 disorder supportive care. continue current therapy, (4) Microcytic Anemia iron supplementation. Patient has planned outpatient colonoscopy for screening. (5)Abdominal pain/chronic pain syndrome suspected secondary to ETOH gastritis, C Per patient recent CT abdmen-negative very agitated and not agreeable to examination Diffuse abdominal pain on limited exam, states "its been a long time" but not willing to quantify, when asked longer than 1 year she said shorter, is currently under treatment with a physician and is planned for colonoscopy. She said percocet did not help and she quit taking it. (6) Morbid Obesity WEIGHTLOSS COUNSELLING PROVIDED 15 MINS SPENT. PT verablized understanding (7)DVT prophylaxis Current Visit: Yes Status: Acute Plan to address problem: scd to ble while in bed Disposition: DC-01 TO HOME OR SELFCARE Time spent for discharge: 35 mins Exam - Constitutional Vitals: Temp Pulse Resp BP Pulse Ox 98.9 F 72 20 90/37 92 08/28/17 08:26 08/28/17 08:26 08/28/17 08:26 08/28/17 08:26 08/28/17 07:40 Plan Activity: advance as tolerated, fall precautions Diet: low cholesterol Special Instructions: record daily weights, record daily BP diary Additional Instructions: follow up per [facility] plans. follow with your GI for colonoscopy as previously planned outpatient Follow up with: PRIMARY CARE, [Primary Care Provider] - 7 Days Prescriptions: Ferrous Sulfate [Feosol 325 MG tab] 325 mg PO TID #90 tablet Folic Acid [Folvite] 1 mg PO QDAY #30 tablet Thiamine [Vitamin B-1] 100 mg PO QDAY #30 tablet
[2017-08-28] MEDS: celeXA PO SCH (10:37)
[2017-08-28] MEDS: SODIUM CHLORIDE FLUSH SYRINGE 10 ML IV SCH (10:38)
[2017-08-28] MEDS: PEPCID PO SCH (10:38)
[2017-08-28] MEDS ORDERED: FEOSOL PO SCH (14:00)
--- NOTE | 2017-08-31 14:13 | XRay Report ---
FINAL REPORT EXAM: XR CHEST 1V AP HISTORY: dypsnea TECHNIQUE: Frontal portable examination of the chest PRIORS: None FINDINGS: Limited examination due to prominent soft tissue attenuation. Oblique patient position limits the examination. Atherosclerotic change in the thoracic aorta. Degenerative change in the thoracic spine. There is no visible pulmonary consolidation, pleural effusion, or pneumothorax. Cardiac silhouette size is normal without vascular congestion. IMPRESSION: No acute cardiopulmonary disease in the visualized chest
== END 2017-08-28 12:00 | disposition home or self-care (01) | DRG 898 ==
LOC: 2B-ACE 14:13 → UNDOADMIN 14:13 → MSU 15:36 → 2B-ACE 08-27 17:07
PROVIDERS: ADMIT Internal Medicine; ATTEND Internal Medicine
DX: F10.239 Alcohol dependence with withdrawal, unspecified (principal); K29.20 Alcoholic gastritis without bleeding; F17.213 Nicotine dependence, cigarettes, with withdrawal; E66.01 Morbid (severe) obesity due to excess calories; J45.909 Unspecified asthma, uncomplicated; G89.4 Chronic pain syndrome; F31.9 Bipolar disorder, unspecified; D50.9 Iron deficiency anemia, unspecified; Z68.41 Body mass index [BMI] 40.0-44.9, adult; Z82.49 Family history of ischemic heart disease and other diseases of the circulatory system; Z88.5 Allergy status to narcotic agent; Z88.0 Allergy status to penicillin; Z71.6 Tobacco abuse counseling
CPT/HCPCS: 36415; 71045; 80053; 80320; 85007; 85025; 94760; G0480; J2060; J3411; J7030; Q0177

== ENCOUNTER 2018-12-13 20:56 | Emergency (ER) | payer MEDICAID ==
--- NOTE | 2018-12-13 21:54 | Event Note ---
ED Screening Note ED Screening Note: pt presents with SOB hx of asthma dry cough This initial assessment/diagnostic orders/clinical plan/treatment(s) is/are subject to change based on patients health status, clinical progression and re- assessment by fellow clinical providers in the ED. Further treatment and workup at subsequent clinical providers discretion. Patient/guardian urged not to elope from the ED as their condition may be serious if not clinically assessed and managed. Initial orders include: CXR, duoneb
[2018-12-13] MEDS ORDERED: DUONEB *Not for PRN Use IH ONE (21:55)
[2018-12-13] MEDS ORDERED: PROVENTIL IH ONE (22:47)
[2018-12-13] MEDS ORDERED: ATROVENT IH ONE (22:47)
[2018-12-13] MEDS ORDERED: SOLU-Medrol IV ONE (22:47)
--- NOTE | 2018-12-13 22:52 | Emergency Department Report ---
ED Shortness of Breath HPI - General Chief Complaint: Dyspnea/Respdistress Stated Complaint: MEDICAL CLEARANCE Time Seen by Provider: 12/13/18 21:53 Source: patient Mode of arrival: Stretcher Limitations: No Limitations - History of Present Illness Initial Comments: 48 yo F w/ hx of asthma presents to ED with cough and wheezing, onset tonight. Pt states she used he inhaler without relief. Reports chronic dry cough and tobacco use. Denies fever. MD Complaint: shortness of breath -: This evening Severity: moderate Consistency: constant Improves With: nothing Worsens With: exertion Known History Of: asthma Associated Symptoms: cough Treatments Prior to Arrival: bronchodilator - Related Data Home Oxygen Therapy: No Home Medications Medication Instructions Recorded Confirmed Last Taken traZODone [Desyrel] 50 mg PO QHS 04/13/15 08/26/17 08/23/17 50 mg Citalopram [Celexa] 20 mg PO QDAY 08/26/17 08/26/17 08/23/17 20 mg Previous Rx's Medication Instructions Recorded Last Taken Type Famotidine [Pepcid] 20 mg PO BID tablet 08/28/17 Unknown Rx Ferrous Sulfate [Feosol 325 MG tab] 325 mg PO TID #90 tablet 08/28/17 Unknown Rx Folic Acid [Folvite] 1 mg PO QDAY #30 tablet 08/28/17 Unknown Rx Thiamine [Vitamin B-1] 100 mg PO QDAY #30 tablet 08/28/17 Unknown Rx Albuterol Sulfate [Proventil Hfa] 2 puff IH Q4HR PRN #1 hfa.aer.ad 12/14/18 Unknown Rx Benzonatate [Tessalon Perles] 100 mg PO Q8HR PRN #20 capsule 12/14/18 Unknown Rx predniSONE [Deltasone] 50 mg PO QDAY #5 tab 12/14/18 Unknown Rx Allergies Allergy/AdvReac Type Severity Reaction Status Date / Time morphine Allergy Rash Verified 07/14/16 02:42 Penicillins AdvReac Unknown Verified 04/13/15 23:10 ED Review of Systems ROS: Stated complaint: MEDICAL CLEARANCE Other details as noted in HPI Comment: All other systems reviewed and negative Constitutional: denies: chills, fever Respiratory: cough, shortness of breath, wheezing Cardiovascular: denies: chest pain ED Past Medical Hx - Past Medical History Hx Deep Vein Thrombosis: Yes (Blood clot left leg January 2016) Hx Psychiatric Treatment: Yes (BIPOLAR) Hx Asthma: Yes - Surgical History Additional Surgical History: gastric bypass, excess skin removal - Social History Smoking Status: Current Every Day Smoker Substance Use Type: Marijuana - Medications Home Medications: Home Medications Medication Instructions Recorded Confirmed Last Taken Type traZODone [Desyrel] 50 mg PO QHS 04/13/15 08/26/17 08/23/17 History 50 mg Citalopram [Celexa] 20 mg PO QDAY 08/26/17 08/26/17 08/23/17 History 20 mg Famotidine [Pepcid] 20 mg PO BID tablet 08/28/17 Unknown Rx Ferrous Sulfate [Feosol 325 MG tab] 325 mg PO TID #90 tablet 08/28/17 Unknown Rx Folic Acid [Folvite] 1 mg PO QDAY #30 tablet 08/28/17 Unknown Rx Thiamine [Vitamin B-1] 100 mg PO QDAY #30 tablet 08/28/17 Unknown Rx Albuterol Sulfate [Proventil Hfa] 2 puff IH Q4HR PRN #1 hfa.aer.ad 12/14/18 Unknown Rx Benzonatate [Tessalon Perles] 100 mg PO Q8HR PRN #20 capsule 12/14/18 Unknown Rx predniSONE [Deltasone] 50 mg PO QDAY #5 tab 12/14/18 Unknown Rx ED Physical Exam - General Limitations: No Limitations General appearance: alert, in no apparent distress - Head Head exam: Present: atraumatic, normocephalic - Eye Eye exam: Present: normal appearance, PERRL, EOMI - ENT ENT exam: Present: mucous membranes moist - Neck Neck exam: Present: normal inspection - Respiratory Respiratory exam: Present: wheezes - Cardiovascular Cardiovascular Exam: Present: regular rate, normal rhythm - GI/Abdominal GI/Abdominal exam: Absent: distended - Extremities Exam Extremities exam: Present: normal inspection - Neurological Exam Neurological exam: Present: alert, oriented X3 - Psychiatric Psychiatric exam: Present: normal affect, normal mood - Skin Skin exam: Present: warm, dry, intact, normal color. Absent: rash ED Course Vital Signs 12/13/18 12/13/18 12/13/18 21:06 21:53 22:52 Temperature 98.3 F 98.3 F Pulse Rate 88 103 H Pulse Rate [ 81 Anterior] Respiratory 18 20 Rate Respiratory 20 Rate [Anterior] Blood Pressure 120/67 Blood Pressure 120/67 [Right] O2 Sat by Pulse 96 98 Oximetry 12/13/18 12/14/18 22:55 00:30 Temperature 97.9 F 98.7 F Pulse Rate 80 95 H Pulse Rate [ Anterior] Respiratory 28 H 19 Rate Respiratory Rate [Anterior] Blood Pressure Blood Pressure 115/64 109/60 [Right] O2 Sat by Pulse 100 97 Oximetry - Reevaluation(s) Reevaluation #1: 12/14/18 00:00 Pt re-evaluated. Resting comfortably on stretcher. Wheezing improved, pt feeling much better. WIll d/c home w/ rx for prednisone, albuterol, tessalon perles. ED Medical Decision Making - Radiology Data Radiology results: report reviewed, image reviewed - Differential Diagnosis asthma, pneumonia, allergies Critical care attestation.: If time is entered above; I have spent that time in minutes in the direct care of this critically ill patient, excluding procedure time. ED Disposition Clinical Impression: Acute asthma exacerbation Disposition: TO HOME OR SELFCARE Is pt being admited?: No Condition: Stable Instructions: Asthma (ED) Prescriptions: predniSONE [Deltasone] 50 mg PO QDAY #5 tab Albuterol Sulfate [Proventil Hfa] 2 puff IH Q4HR PRN #1 hfa.aer.ad PRN Reason: Wheezing Benzonatate [Tessalon Perles] 100 mg PO Q8HR PRN #20 capsule PRN Reason: Cough Referrals: PRIMARY CARE [Primary Care Provider] - 3-5 Days [facility] [Provider Group] - 3-5 Days Time of Disposition: 00:11
[2018-12-14 00:55] VITALS: BP 109/60
--- NOTE | 2018-12-14 02:31 | XRay Report ---
CHEST 2 VIEWS INDICATION / CLINICAL INFORMATION: SOB, hx of asthma. COMPARISON: 08/26/2017 FINDINGS: SUPPORT DEVICES: None. HEART / MEDIASTINUM: No significant abnormality. LUNGS / PLEURA: No significant pulmonary or pleural abnormality. .No pneumothorax. ADDITIONAL FINDINGS: No significant additional findings. IMPRESSION: 1. No acute findings. Signer Name: Jag Patiño MD Signed: 12/14/2018 2:27 AM Workstation Name: [id number]
== END 2018-12-14 01:04 | disposition home or self-care (01) ==
LOC: ED 20:56
DX: J45.901 Unspecified asthma with (acute) exacerbation (principal); F31.9 Bipolar disorder, unspecified; F17.200 Nicotine dependence, unspecified, uncomplicated; F12.10 Cannabis abuse, uncomplicated; Z79.899 Other long term (current) drug therapy; Z88.6 Allergy status to analgesic agent; Z88.1 Allergy status to other antibiotic agents; Z86.718 Personal history of other venous thrombosis and embolism; Z79.01 Long term (current) use of anticoagulants
CPT/HCPCS: 71046; 94640; 96374; 99284; J2930; 94644

== ENCOUNTER 2019-03-01 10:16 | Inpatient (IN) | payer MEDICAID ==
[2019-03-01] MEDS ORDERED: oxyCODONE /ACETAMINOPHEN 5-325MG TAB PO ONE (10:45)
[2019-03-01] MEDS ORDERED: IPRATROPIUM/ALBUTEROL SULFATE 3 ML AMPUL.NEB IH ONE (10:46)
--- NOTE | 2019-03-01 10:58 | Emergency Department Report ---
HPI - General Chief Complaint: Dyspnea/Respdistress Time Seen by Provider: 03/01/19 10:43 - HPI HPI: 48-year-old female presents to the emergency department via EMS from home with complaint of bilateral leg pain and swelling, and shortness of breath. The patient was just recently discharged from [facility] this past , after spending a few days therefore bilateral DVTs and PE. The patient was discharged on Eliquis which she says she has been taking compliantly without missing any doses. She says that there has been increased swelling of the legs and increased leg pain to the point where she is having di fficulty with ambulation. She denies any chest pain. She otherwise has a past medical history of asthma. She is a tobacco smoker but denies any illicit drug use. Her primary care physician is a nurse practitioner, Nadege Corrales. ED Past Medical Hx - Past Medical History Previous Medical History?: Yes Hx Deep Vein Thrombosis: Yes (BLE DVT; R PE 01/2019) Hx Psychiatric Treatment: Yes (BIPOLAR; anxiety, depression) Hx Asthma: Yes - Surgical History Past Surgical History?: Yes Additional Surgical History: gastric bypass, excess skin removal - Social History Smoking Status: Current Every Day Smoker - Medications Home Medications: Home Medications Medication Instructions Recorded Confirmed Last Taken Type Apixaban [Eliquis] 5 mg PO DAILY 03/01/19 03/01/19 Unknown History QUEtiapine [SEROquel] 200 mg PO QHS 03/01/19 03/01/19 Unknown History oxyCODONE /ACETAMINOPHEN [Percocet 1 tab PO Q6HR PRN 03/01/19 03/01/19 Unknown History 5/325] ED Review of Systems ROS: Stated complaint: GURJIT Other details as noted in HPI Comment: All other systems reviewed and negative Constitutional: denies: chills, fever Eyes: denies: eye pain, vision change ENT: denies: ear pain, throat pain Respiratory: cough, shortness of breath Cardiovascular: edema. denies: chest pain Gastrointestinal: denies: abdominal pain, vomiting Genitourinary: denies: dysuria, discharge Musculoskeletal: myalgia. denies: back pain Skin: denies: rash, lesions Neurological: denies: headache, numbness, paresthesias Physical Exam - Physical Exam Vital Signs: Vital Signs 03/01/19 10:23 Temperature 98.0 F Pulse Rate 66 Respiratory 22 Rate Blood Pressure 124/75 O2 Sat by Pulse 96 Oximetry Physical Exam: GENERAL: The patient is well-developed well-nourished. HENT: Normocephalic. Atraumatic. Patient has moist mucous membranes. EYES: Extraocular motions are intact. Pupils equal reactive to light bilaterally. NECK: Supple. Trachea is midline. CHEST/LUNGS: Coarse breath sounds. No tachypnea or accessory muscle use. There is a bronchospastic cough heard. There is no respiratory distress noted. HEART/CARDIOVASCULAR: Regular. There is no tachycardia. There is no murmur. ABDOMEN: Abdomen is soft, nontender. Patient has normal bowel sounds. There is no abdominal distention. SKIN: Patient has +2 over 4 bilateral lower extremity pitting edema. NEURO: The patient is awake, alert, and oriented. The patient is cooperative. The patient has no focal neurologic deficits. Normal speech. MUSCULOSKELETAL: There is significant tenderness to palpation to the bilateral lower extremities from the knees down to the ankles. ED Course Vital Signs 03/01/19 10:23 Temperature 98.0 F Pulse Rate 66 Respiratory 22 Rate Blood Pressure 124/75 O2 Sat by Pulse 96 Oximetry ED Medical Decision Making - Lab Data Result diagrams: 03/01/19 11:06 03/01/19 11:06 - EKG Data -: EKG Interpreted by Me EKG shows normal: sinus rhythm, axis, intervals, QRS complexes, ST-T waves (T wave inversions inferior leads, flat T waves lateral leads) Rate: normal - EKG Data When compared to previous EKG there are: no significant change Interpretation: unchanged when compared t (07/21/16) - Radiology Data Radiology results: report reviewed, image reviewed interpreted by me: Chest x-ray does not show any acute process. There are no pleural effusions, obvious pneumonia and there is no pneumothorax. DUPLEX DOPPLER LOWER EXTREMITY VEINS, BILATERAL INDICATION: B/L leg pain, hx of recent DVT. TECHNIQUE: Duplex doppler imaging was performed through the veins of both lower extremities using venous compression and other maneuvers. COMPARISON: 07/14/2016 DVT study of the left lower extremity. FINDINGS: Right Common femoral vein: Negative. Right Superficial femoral vein: Negative. Right Popliteal vein: Negative. Right Calf veins: Negative. Left Common femoral vein: Negative. Left Superficial femoral vein: Negative. Left Popliteal vein: Negative. Left Calf veins: Negative. Additional findings: A right popliteal cyst is identified measuring 3.0 x 0.9 cm. IMPRESSION: No sonographic evidence for DVT in either lower extremity. Right popliteal cyst. - Medical Decision Making Patient presents with some increased lower extremity pain and swelling, some increased shortness of breath, since her last admission to [facility] about one week ago for DVTs and PE. Patient does have moderate to severe lower extremity swelling that is pitting and she has significant tenderness to palpation along the legs. She has some slightly coarse breath sounds but she does not appear in any respiratory distress. Chest x-ray does not show any pleural effusions, pneumonia, pneumothorax, focal consolidation or any other acute process. Bila teral lower extremity venous Doppler ultrasound were negative for any DVT but does show a right-sided popliteal cyst. Patient's labs show some anemia, mild hypokalemia, mild transaminitis and a BNP level greater than 2000. With the elevated BNP level, as well as the lower extremity swelling, the patient may have some congestive heart failure. She was given some Lasix for diuresis. She was given some potassium for the hypokalemia. The patient will be admitted to the hospital for further evaluation and treatment and was accepted for admission by the hospitalist, Dr. Neito. - Differential Diagnosis CHF, DVT, Pneumonia, Venous Stasis Critical Care Time: No Critical care attestation.: If time is entered above; I have spent that time in minutes in the direct care of this critically ill patient, excluding procedure time. ED Disposition Clinical Impression: Bilateral lower extremity edema CHF (congestive heart failure) Qualifiers: Heart failure type: unspecified Heart failure chronicity: unspecified Qualified Code(s): I50.9 - Heart failure, unspecified Anemia Qualifiers: Anemia type: unspecified type Qualified Code(s): D64.9 - Anemia, unspecified Dyspnea Qualifiers: Dyspnea type: shortness of breath Qualified Code(s): R06.02 - Shortness of breath; R06.00 - Dyspnea, unspecified; R06.01 - Orthopnea Disposition: OP ADMIT IP TO THIS HOSP Is pt being admited?: Yes Condition: Fair Referrals: PRIMARY CARE, [Referring] - 3-5 Days Time of Disposition: 16:15
[2019-03-01 11:44] LABS: INR 1.36 (0.87-1.13)
[2019-03-01 11:45] LABS: Mean Corpuscular HGB Conc 30 % (30-34); Mean Corpuscular Volume 79 fl (79-97); Platelet Count 265 K/mm3 (140-440); Red Blood Count 3.98 M/mm3 (3.65-5.03)
--- NOTE | 2019-03-01 11:45 | XRay Report ---
CHEST 1 VIEW INDICATION: Shortness of breath. COMPARISON: 12/13/2018 FINDINGS: Support devices: None. Heart: Within normal limits. Lungs/Pleura: No acute air space or interstitial disease. Additional findings: None. IMPRESSION: No acute findings. Signer Name: Shamir Dunn Jr, MD Signed: 03/01/2019 11:41 AM Workstation Name: [id number]
[2019-03-01 11:46] LABS: Partial Thromboplastin Time 31.1 Sec. (24.2-36.6)
[2019-03-01 11:48] LABS: Hematocrit 31.3 % (30.3-42.9); Hemoglobin 9.3 gm/dl (10.1-14.3); Red Cell Distribution Width 28.5 % (13.2-15.2)
[2019-03-01 11:51] LABS: Alanine Aminotransferase 57 units/L (7-56); Albumin 3.5 g/dL (3.9-5); BUN/Creatinine Ratio 13; Blood Urea Nitrogen 10 mg/dL (7-17); Calcium 8.4 mg/dL (8.4-10.2); Hemolysis Index 4
[2019-03-01] MEDS ORDERED: FUROSEMIDE 20 MG/2 ML INJ IV ONE (11:52)
[2019-03-01] MEDS ORDERED: POTASSIUM CHLORIDE ER 20 MEQ TAB PO ONE (11:52)
[2019-03-01 12:28] LABS: Basophils % (Manual) 0 % (0.0-1.8); Total Cells Counted 100
[2019-03-01 12:29] LABS: Anisocytosis 2+; Hypochromasia 1+; Large Platelets Rare; Ovalocytes Few; Platelet Estimate Consistent w Auto; Poikilocytosis 1+; Target Cells 1+
--- NOTE | 2019-03-01 14:06 | Vascular Lab Report ---
DUPLEX DOPPLER LOWER EXTREMITY VEINS, BILATERAL INDICATION: B/L leg pain, hx of recent DVT. TECHNIQUE: Duplex doppler imaging was performed through the veins of both lower extremities using ve nous compression and other maneuvers. COMPARISON: 07/14/2016 DVT study of the left lower extremity. FINDINGS: Right Common femoral vein: Negative. Right Superficial femoral vein: Negative. Right Popliteal vein: Negative. Right Calf veins: Negative. Left Common femoral vein: Negative. Left Superficial femoral vein: Negative. Left Popliteal vein: Negative. Left Calf veins: Negative. Additional findings: A right popliteal cyst is identified measuring 3.0 x 0.9 cm. IMPRESSION: No sonographic evidence for DVT in either lower extremity. Right popliteal cyst. Signer Name: Shamir Dunn Jr, MD Signed: 03/01/2019 2:01 PM Workstation Name: [id number]
--- NOTE | 2019-03-01 14:53 | History and Physical Report ---
History of Present Illness Date of examination: 03/01/19 Date of admission: 03/01/2019 Chief complaint: Bilat Leg swelling + pain History of present illness: Patient is a 48-year-old female with a past medical history of asthma and depression who presents to with complaints of bilateral leg edema and pain 10 days. Patient states that she was seen at [facility] 02/17 and discharge 02/21 after being diagnosed with R leg DVT and PE. Patient was discharged home with anticoagulation therapy and heme/onc follow-up with Dr. Champion. The patient presents to the ER today after complaints of increased leg pain and shortness of breath with ambulation. Patient states pain is relieved by rest and pain medication. She currently denies chest pain or difficulty breathing while laying in bed. Past History Past Medical History: DVT, other (asthma, Bipolar Disorder). denies: acute KS, cancer, diabetes Past Surgical History: Other (Gastric Bypass) Social history: smoking (30 years) Family history: CAD, diabetes, hypertension, stroke Medications and Allergies Allergies Allergy/AdvReac Type Severity Reaction Status Date / Time acetaminophen Allergy Unknown Verified 03/01/19 12:26 [From Tylenol-Codeine #3] codeine Allergy Unknown Verified 03/01/19 12:26 [From Tylenol-Codeine #3] morphine Allergy Rash Verified 07/14/16 02:42 Penicillins AdvReac Unknown Verified 04/13/15 23:10 Home Medications Medication Instructions Recorded Confirmed Last Taken Type Apixaban [Eliquis] 5 mg PO DAILY 03/01/19 03/01/19 Unknown History QUEtiapine [SEROquel] 200 mg PO QHS 03/01/19 03/01/19 Unknown History oxyCODONE /ACETAMINOPHEN [Percocet 1 tab PO Q6HR PRN 03/01/19 03/01/19 Unknown History 5/325] Review of Systems Constitutional: weight gain, no fever, no chills, no sweats Ears, nose, mouth and throat: no ear pain, no ear discharge, no nose pain, no nasal congestion, no swelling in mouth, no voice changes, no headache Breasts: no pain, no Cardiovascular: leg edema, no chest pain, no rapid/irregular heart beat, no lightheadedness, no shortness of breath Respiratory: cough, no congestion, no home oxygen Gastrointestinal: no nausea, no vomiting, no diarrhea, no constipation Genitourinary Female: urinary frequency, no pelvic pain Menstruation: menses variable Rectal: no bleeding Musculoskeletal: shooting leg pain, limitation of motion, no neck stiffness, no neck pain, no arm numbness/tingling, no low back pain Integumentary: no rash, no growths, no acne, no dryness, no brittle nails Neurological: no head injury, no transient paralysis, no weakness, no seizures, no change in speech, no change in mentation, no double vision Psychiatric: depression, no difficulties concentrating, no sadness/tearfullness Endocrine: no cold intolerance, no heat intolerance, no excessive sweating, no high blood sugars Hematologic/Lymphatic: no easy bruising, no easy bleeding Allergic/Immunologic: no wheezing Exam - Constitutional Vitals: Temp Pulse Resp BP Pulse Ox 98.0 F 78 18 109/64 97 03/01/19 10:23 03/01/19 14:30 03/01/19 14:30 03/01/19 14:30 03/01/19 14:30 General appearance: Present: no acute distress - EENT Eyes: Present: PERRL, EOM intact ENT: hearing intact, clear oral mucosa, dentition normal - Neck Neck: Present: supple, normal ROM - Respiratory Respiratory effort: normal Respiratory: right: diminished, bilateral: CTA - Cardiovascular Rhythm: regular Heart Sounds: Present: S1 & S2 - Extremities Extremities: pulses intact Extremity abnormal: edema Peripheral Pulses: within normal limits - Abdominal General gastrointestinal: Present: non-tender, normal bowel sounds - Rectal Rectal Exam: deferred - Integumentary Integumentary: Present: warm, dry - Musculoskeletal Musculoskeletal: strength equal bilaterally - Psychiatric Psychiatric: appropriate mood/affect - Neurologic Neurologic: moves all extremities Results - Labs CBC & Chem 7: 03/01/19 11:06 03/01/19 11:06 Labs: Laboratory Last Values WBC 9.8 K/mm3 (4.5-11.0) 03/01/19 11:06 RBC 3.98 M/mm3 (3.65-5.03) 03/01/19 11:06 Hgb 9.3 gm/dl (10.1-14.3) L 03/01/19 11:06 Hct 31.3 % (30.3-42.9) 03/01/19 11:06 MCV 79 fl (79-97) 03/01/19 11:06 MCH 23 pg (28-32) L 03/01/19 11:06 MCHC 30 % (30-34) 03/01/19 11:06 RDW 28.5 % (13.2-15.2) H 03/01/19 11:06 Plt Count 265 K/mm3 (140-440) 03/01/19 11:06 Lymph % (Auto) Airset Molder 03/01/19 11:06 [place] % (Auto) Airset Molder 03/01/19 11:06 Eos % (Auto) Airset Molder 03/01/19 11:06 Baso % (Auto) Airset Molder 03/01/19 11:06 Lymph # Airset Molder 03/01/19 11:06 [place] # Airset Molder 03/01/19 11:06 Eos # Airset Molder 03/01/19 11:06 Baso # Airset Molder 03/01/19 11:06 Add Manual Diff Complete 03/01/19 11:06 Total Counted 100 03/01/19 11:06 Seg Neutrophils % Airset Molder 03/01/19 11:06 Seg Neuts % (Manual) 77.0 % (40.0-70.0) H 03/01/19 11:06 Band Neutrophils % 0 % 03/01/19 11:06 Lymphocytes % (Manual) 20.0 % (13.4-35.0) 03/01/19 11:06 Reactive Lymphs % (Man) 0 % 03/01/19 11:06 Monocytes % (Manual) 2.0 % (0.0-7.3) 03/01/19 11:06 Eosinophils % (Manual) 1.0 % (0.0-4.3) 03/01/19 11:06 Basophils % (Manual) 0 % (0.0-1.8) 03/01/19 11:06 Metamyelocytes % 0 % 03/01/19 11:06 Myelocytes % 0 % 03/01/19 11:06 Promyelocytes % 0 % 03/01/19 11:06 Blast Cells % 0 % 03/01/19 11:06 Nucleated RBC % Not Reportable 03/01/19 11:06 Seg Neutrophils # Airset Molder 03/01/19 11:06 Seg Neutrophils # Man 7.5 K/mm3 (1.8-7.7) 03/01/19 11:06 Band Neutrophils # 0.0 K/mm3 03/01/19 11:06 Lymphocytes # (Manual) 2.0 K/mm3 (1.2-5.4) 03/01/19 11:06 Abs React Lymphs (Man) 0.0 K/mm3 03/01/19 11:06 Monocytes # (Manual) 0.2 K/mm3 (0.0-0.8) 03/01/19 11:06 Eosinophils # (Manual) 0.1 K/mm3 (0.0-0.4) 03/01/19 11:06 Basophils # (Manual) 0.0 K/mm3 (0.0-0.1) 03/01/19 11:06 Metamyelocytes # 0.0 K/mm3 03/01/19 11:06 Myelocytes # 0.0 K/mm3 03/01/19 11:06 Promyelocytes # 0.0 K/mm3 03/01/19 11:06 Blast Cells # 0.0 K/mm3 03/01/19 11:06 WBC Morphology Not Reportable 03/01/19 11:06 Hypersegmented Neuts Not Reportable 03/01/19 11:06 Hyposegmented Neuts Not Reportable 03/01/19 11:06 Hypogranular Neuts Not Reportable 03/01/19 11:06 Smudge Cells Not Reportable 03/01/19 11:06 Toxic Granulation Not Reportable 03/01/19 11:06 Toxic Vacuolation Not Reportable 03/01/19 11:06 Dohle Bodies Not Reportable 03/01/19 11:06 Pelger-Huet Anomaly Not Reportable 03/01/19 11:06 Teri Rods Not Reportable 03/01/19 11:06 Platelet Estimate Consistent w auto 03/01/19 11:06 Clumped Platelets Not Reportable 03/01/19 11:06 Plt Clumps, EDTA Not Reportable 03/01/19 11:06 Large Platelets Rare 03/01/19 11:06 Giant Platelets Not Reportable 03/01/19 11:06 Platelet Satelliting Not Reportable 03/01/19 11:06 Plt Morphology Comment Not Reportable 03/01/19 11:06 RBC Morphology Not Reportable 03/01/19 11:06 Dimorphic RBCs Not Reportable 03/01/19 11:06 Polychromasia Not Reportable 03/01/19 11:06 Hypochromasia 1+ 03/01/19 11:06 Poikilocytosis 1+ 03/01/19 11:06 Anisocytosis 2+ 03/01/19 11:06 Microcytosis 1+ 03/01/19 11:06 Macrocytosis Not Reportable 03/01/19 11:06 Spherocytes Not Reportable 03/01/19 11:06 Pappenheimer Bodies Not Reportable 03/01/19 11:06 Sickle Cells Not Reportable 03/01/19 11:06 Target Cells 1+ 03/01/19 11:06 Tear Drop Cells Not Reportable 03/01/19 11:06 Ovalocytes Few 03/01/19 11:06 Helmet Cells Not Reportable 03/01/19 11:06 Ma-Roberta Bodies Not Reportable 03/01/19 11:06 [place] Rings Not Reportable 03/01/19 11:06 Maria Luisa Cells Not Reportable 03/01/19 11:06 Bite Cells Not Reportable 03/01/19 11:06 Crenated Cell Not Reportable 03/01/19 11:06 Elliptocytes Not Reportable 03/01/19 11:06 Acanthocytes (Spur) Not Reportable 03/01/19 11:06 Rouleaux Not Reportable 03/01/19 11:06 Hemoglobin C Crystals Not Reportable 03/01/19 11:06 Schistocytes Not Reportable 03/01/19 11:06 Malaria parasites Not Reportable 03/01/19 11:06 Luis Bodies Not Reportable 03/01/19 11:06 Hem Pathologist Commnt No 03/01/19 11:06 PT 16.6 Sec. (12.2-14.9) H 03/01/19 11:06 INR 1.36 (0.87-1.13) H 03/01/19 11:06 APTT 31.1 Sec. (24.2-36.6) 03/01/19 11:06 Sodium 143 mmol/L (137-145) 03/01/19 11:06 Potassium 3.3 mmol/L (3.6-5.0) L 03/01/19 11:06 Chloride 106.9 mmol/L (98-107) 03/01/19 11:06 Carbon Dioxide 25 mmol/L (22-30) 03/01/19 11:06 Anion Gap 14 mmol/L 03/01/19 11:06 BUN 10 mg/dL (7-17) 03/01/19 11:06 Creatinine 0.8 mg/dL (0.7-1.2) 03/01/19 11:06 Estimated GFR > 60 ml/min 03/01/19 11:06 BUN/Creatinine Ratio 13 % 03/01/19 11:06 Glucose 91 mg/dL (65-100) 03/01/19 11:06 Calcium 8.4 mg/dL (8.4-10.2) 03/01/19 11:06 Total Bilirubin 0.30 mg/dL (0.1-1.2) 03/01/19 11:06 AST 61 units/L (5-40) H 03/01/19 11:06 ALT 57 units/L (7-56) H 03/01/19 11:06 Alkaline Phosphatase 137 units/L (35-129) H 03/01/19 11:06 Total Creatine Kinase 45 units/L (30-135) 03/01/19 11:06 Troponin T < 0.010 ng/mL (0.00-0.029) 03/01/19 11:06 NT-Pro-B Natriuret Pep 2023 pg/mL (0-450) H 03/01/19 11:06 Total Protein 6.0 g/dL (6.3-8.2) L 03/01/19 11:06 Albumin 3.5 g/dL (3.9-5) L 03/01/19 11:06 Albumin/Globulin Ratio 1.4 % 03/01/19 11:06 - Imaging and Cardiology Chest x-ray: report reviewed Assessment and Plan Assessment and plan: CHEST 1 VIEW IMPRESSION: No acute findings. DUPLEX DOPPLER LOWER EXTREMITY VEINS, BILATERAL IMPRESSION: No sonographic evidence for DVT in either lower extremity. Right popliteal cyst. Plan CHF -Echocardiogram ordered -monitor uop q shift, -blood pressure control -supplemental oxygen, pulse oximetry Edema of both lower extremities - diuretic -Strict I/O -daily weight Anemia -monitor CBC HypoKalemia -potassium replacement, -monitor BMP Bipolar Disorder supportive care, continue current therapy. hx ETOH Dependency -ciwa protocol DVT prophylaxis -heparin scd to ble while in bed VTE prophylaxis?: Chemical Plan of care discussed with patient/family: Yes
[2019-03-01] MEDS ORDERED: ACETAMINOPHEN 325 MG TAB PO PRN (16:28)
[2019-03-01] MEDS ORDERED: ONDANSETRON 4 MG/2 ML INJ IV PRN (16:28)
[2019-03-01] MEDS ORDERED: LORazepam 2 MG TAB PO PRN (16:36)
[2019-03-01] MEDS ORDERED: ENOXAPARIN 40 MG/0.4 ML INJ SUB-Q SCH (17:00)
[2019-03-01] MEDS: POTASSIUM CHLORIDE ER 20 MEQ TAB PO SCH ×2 (17:29→21:07)
[2019-03-01 18:27] LABS: Alanine Aminotransferase 57 units/L (7-56); Albumin 3.5 g/dL (3.9-5)
[2019-03-01 18:30] LABS: Bilirubin,Direct < 0.2 mg/dL (0-0.2)
[2019-03-01] MEDS: FUROSEMIDE 40 MG/4 ML INJ IV SCH (19:37)
[2019-03-01] MEDS: APIXABAN 5 MG TAB PO SCH (19:37)
[2019-03-01] MEDS ORDERED: APIXABAN 5 MG TAB ONE (19:37)
[2019-03-01] MEDS ORDERED: FUROSEMIDE 40 MG/4 ML INJ ONE (19:37)
--- NOTE | 2019-03-01 19:39 | Cat Scan Report ---
CT angio chest INDICATION / CLINICAL INFORMATION: PE. TECHNIQUE: Precontrast bolus timing images were obtained followed by postcontrast axial and reformatted images. 3-plane MIP reconstructions were performed at an independent workstation by the technologist. All CT scans at this location are performed using CT dose reduction for ALARA by means of automated exposure control. COMPARISON: None available. FINDINGS: There are no abnormal pulmonary arterial filling defects to suggest acute pulmonary embolism. No acute lung disease. No mediastinal lymph node enlargement. Heart size is normal and there is no pericardial effusion. Upper abdominal images are remarkable for left upper pole renal cyst. Degenerative changes are seen in the lower thoracic spine. IMPRESSION: 1. No evidence of acute pulmonary embolism. Signer Name: Darin Nelson MD Signed: 03/01/2019 7:34 PM Workstation Name: [id number]
[2019-03-01] MEDS: HYDROmorphone 1 MG/1 ML INJ IV PRN (21:07)
[2019-03-01] MEDS: QUEtiapine 200 MG TAB PO SCH (23:26)
[2019-03-02] MEDS: HYDROmorphone 1 MG/1 ML INJ IV PRN (04:27)
[2019-03-02] MEDS: FUROSEMIDE 40 MG/4 ML INJ IV SCH ×2 (06:36→18:09)
[2019-03-02 06:51] LABS: Alanine Aminotransferase 44 units/L (7-56); BUN/Creatinine Ratio 13; Blood Urea Nitrogen 10 mg/dL (7-17); Calcium 8.2 mg/dL (8.4-10.2); Hemolysis Index 1
[2019-03-02] MEDS: oxyCODONE /ACETAMINOPHEN 5-325MG TAB PO PRN ×3 (10:01→22:00)
[2019-03-02] MEDS: POTASSIUM CHLORIDE ER 20 MEQ TAB PO SCH ×2 (10:01→22:03)
[2019-03-02] MEDS: APIXABAN 5 MG TAB PO SCH ×2 (10:02→22:02)
[2019-03-02 10:34] LABS: Hematocrit 32.7 % (30.3-42.9); Mean Corpuscular HGB Conc 31 % (30-34); Mean Corpuscular Volume 78 fl (79-97); Platelet Count 274 K/mm3 (140-440); Red Blood Count 4.22 M/mm3 (3.65-5.03)
[2019-03-02 10:39] LABS: Red Cell Distribution Width 28.7 % (13.2-15.2)
[2019-03-02 11:09] LABS: Basophils % (Manual) 0 % (0.0-1.8); Total Cells Counted 100
[2019-03-02 11:10] LABS: Anisocytosis 2+; Hypochromasia 1+; Large Platelets Rare; Ovalocytes Few; Platelet Estimate Consistent w Auto; Poikilocytosis 1+; Target Cells 1+
--- NOTE | 2019-03-02 14:07 | Progress Note ---
Assessment and Plan Assessment and plan: Acute diastolic heart failure with EF of 50-55% -On CHF protocol -Echo showed EF of 50-55% with diastolic dysfunction -Continue IV diuretics -Cardiology following Dyspnea with BLE edema -CTA negative for PE -Venous duplex ultrasound negative for DVT Elevated blood pressure without prior diagnosis of hypertension -Probably due to possible alcohol withdrawal -On CINH protocol Hypokalemia -Improving on repletion, will monitor level -We'll check magnesium level Transaminitis -Levels improved History of recent RT LE DVT -Continue home Carol AOCD -H&H stable Bipolar Disorder -Stable -On Seroquel at bedtime Hx of ETOH Dependency -On cide protocol -Patient counseled on cessation Asthma -No acute exacerbation -On PRN neb tx Morbid obesity with BMI of 50.2 -Lifestyle modification recommended Tobacco abuse -Cessation recommended DVT prophylaxis: -heparin -scd to ble while in bed Disposition: For discharge when medically stable, probably in 2-3 days History Interval history: Patient reports some improvement in her shortness of breath. She denied chest pain. Hospitalist Physical - Constitutional Vitals: Temp Pulse Resp BP Pulse Ox 97.7 F 88 20 92/45 97 03/02/19 11:51 03/02/19 11:51 03/02/19 11:51 03/02/19 11:51 03/02/19 11:51 General appearance: Present: no acute distress - EENT Eyes: Present: PERRL, EOM intact ENT: hearing intact, clear oral mucosa - Neck Neck: Present: supple - Respiratory Respiratory effort: normal Respiratory: bilateral: diminished, rales - Cardiovascular Rhythm: regular Heart Sounds: Present: S1 & S2 - Extremities Extremity abnormal: edema (in BLE) - Abdominal General gastrointestinal: soft, non-tender, normal bowel sounds - Integumentary Integumentary: Present: warm, dry - Psychiatric Psychiatric: cooperative - Neurologic Neurologic: moves all extremities Results - Labs CBC & Chem 7: 03/02/19 09:38 03/02/19 05:28 Labs: Laboratory Last Values WBC 7.8 K/mm3 (4.5-11.0) 03/02/19 09:38 RBC 4.22 M/mm3 (3.65-5.03) 03/02/19 09:38 Hgb 10.0 gm/dl (10.1-14.3) L 03/02/19 09:38 Hct 32.7 % (30.3-42.9) 03/02/19 09:38 MCV 78 fl (79-97) L 03/02/19 09:38 MCH 24 pg (28-32) L 03/02/19 09:38 MCHC 31 % (30-34) 03/02/19 09:38 RDW 28.7 % (13.2-15.2) H 03/02/19 09:38 Plt Count 274 K/mm3 (140-440) 03/02/19 09:38 Lymph % (Auto) [employer]ib[employer] Operations Officer 03/02/19 09:38 [place] % (Auto) Amphibious Operations Officer 03/02/19 09:38 Eos % (Auto) Amphibious Operations Officer 03/02/19 09:38 Baso % (Auto) Amphibious Operations Officer 03/02/19 09:38 Lymph # Amphibious Operations Officer 03/02/19 09:38 [place] # Amphibious Operations Officer 03/02/19 09:38 Eos # Amphibious Operations Officer 03/02/19 09:38 Baso # Amphibious Operations Officer 03/02/19 09:38 Add Manual Diff Complete 03/02/19 09:38 Total Counted 100 03/02/19 09:38 Seg Neutrophils % Amphibious Operations Officer 03/02/19 09:38 Seg Neuts % (Manual) 60.0 % (40.0-70.0) 03/02/19 09:38 Band Neutrophils % 0 % 03/02/19 09:38 Lymphocytes % (Manual) 35.0 % (13.4-35.0) 03/02/19 09:38 Reactive Lymphs % (Man) 0 % 03/02/19 09:38 Monocytes % (Manual) 4.0 % (0.0-7.3) 03/02/19 09:38 Eosinophils % (Manual) 1.0 % (0.0-4.3) 03/02/19 09:38 Basophils % (Manual) 0 % (0.0-1.8) 03/02/19 09:38 Metamyelocytes % 0 % 03/02/19 09:38 Myelocytes % 0 % 03/02/19 09:38 Promyelocytes % 0 % 03/02/19 09:38 Blast Cells % 0 % 03/02/19 09:38 Nucleated RBC % Not Reportable 03/02/19 09:38 Seg Neutrophils # Amphibious Operations Officer 03/02/19 09:38 Seg Neutrophils # Man 4.7 K/mm3 (1.8-7.7) 03/02/19 09:38 Band Neutrophils # 0.0 K/mm3 03/02/19 09:38 Lymphocytes # (Manual) 2.7 K/mm3 (1.2-5.4) 03/02/19 09:38 Abs React Lymphs (Man) 0.0 K/mm3 03/02/19 09:38 Monocytes # (Manual) 0.3 K/mm3 (0.0-0.8) 03/02/19 09:38 Eosinophils # (Manual) 0.1 K/mm3 (0.0-0.4) 03/02/19 09:38 Basophils # (Manual) 0.0 K/mm3 (0.0-0.1) 03/02/19 09:38 Metamyelocytes # 0.0 K/mm3 03/02/19 09:38 Myelocytes # 0.0 K/mm3 03/02/19 09:38 Promyelocytes # 0.0 K/mm3 03/02/19 09:38 Blast Cells # 0.0 K/mm3 03/02/19 09:38 WBC Morphology Not Reportable 03/02/19 09:38 Hypersegmented Neuts Not Reportable 03/02/19 09:38 Hyposegmented Neuts Not Reportable 03/02/19 09:38 Hypogranular Neuts Not Reportable 03/02/19 09:38 Smudge Cells Not Reportable 03/02/19 09:38 Toxic Granulation Not Reportable 03/02/19 09:38 Toxic Vacuolation Not Reportable 03/02/19 09:38 Dohle Bodies Not Reportable 03/02/19 09:38 Pelger-Huet Anomaly Not Reportable 03/02/19 09:38 Teri Rods Not Reportable 03/02/19 09:38 Platelet Estimate Consistent w auto 03/02/19 09:38 Clumped Platelets Not Reportable 03/02/19 09:38 Plt Clumps, EDTA Not Reportable 03/02/19 09:38 Large Platelets Rare 03/02/19 09:38 Giant Platelets Not Reportable 03/02/19 09:38 Platelet Satelliting Not Reportable 03/02/19 09:38 Plt Morphology Comment Not Reportable 03/02/19 09:38 RBC Morphology Not Reportable 03/02/19 09:38 Dimorphic RBCs Not Reportable 03/02/19 09:38 Polychromasia Not Reportable 03/02/19 09:38 Hypochromasia 1+ 03/02/19 09:38 Poikilocytosis 1+ 03/02/19 09:38 Anisocytosis 2+ 03/02/19 09:38 Microcytosis Few 03/02/19 09:38 Macrocytosis Not Reportable 03/02/19 09:38 Spherocytes Not Reportable 03/02/19 09:38 Pappenheimer Bodies Not Reportable 03/02/19 09:38 Sickle Cells Not Reportable 03/02/19 09:38 Target Cells 1+ 03/02/19 09:38 Tear Drop Cells Not Reportable 03/02/19 09:38 Ovalocytes Few 03/02/19 09:38 Helmet Cells Not Reportable 03/02/19 09:38 Ma-[place] Bodies Not Reportable 03/02/19 09:38 [place] Rings Not Reportable 03/02/19 09:38 [place] Cells Not Reportable 03/02/19 09:38 Bite Cells Not Reportable 03/02/19 09:38 Crenated Cell Not Reportable 03/02/19 09:38 Elliptocytes Not Reportable 03/02/19 09:38 Acanthocytes (Spur) Not Reportable 03/02/19 09:38 Rouleaux Not Reportable 03/02/19 09:38 Hemoglobin C Crystals Not Reportable 03/02/19 09:38 Schistocytes Not Reportable 03/02/19 09:38 Malaria parasites Not Reportable 03/02/19 09:38 Luis Bodies Not Reportable 03/02/19 09:38 Hem Pathologist Commnt No 03/02/19 09:38 PT 16.6 Sec. (12.2-14.9) H 03/01/19 11:06 INR 1.36 (0.87-1.13) H 03/01/19 11:06 APTT 31.1 Sec. (24.2-36.6) 03/01/19 11:06 Sodium 144 mmol/L (137-145) 03/02/19 05:28 Potassium 3.6 mmol/L (3.6-5.0) 03/02/19 05:28 Chloride 103.4 mmol/L (98-107) 03/02/19 05:28 Carbon Dioxide 31 mmol/L (22-30) H 03/02/19 05:28 Anion Gap 13 mmol/L 03/02/19 05:28 BUN 10 mg/dL (7-17) 03/02/19 05:28 Creatinine 0.8 mg/dL (0.7-1.2) 03/02/19 05:28 Estimated GFR > 60 ml/min 03/02/19 05:28 BUN/Creatinine Ratio 13 % 03/02/19 05:28 Glucose 81 mg/dL (65-100) 03/02/19 05:28 Hemoglobin A1c 4.9 % (4-6) 03/01/19 11:06 Calcium 8.2 mg/dL (8.4-10.2) L 03/02/19 05:28 Total Bilirubin 0.30 mg/dL (0.1-1.2) 03/02/19 05:28 Direct Bilirubin < 0.2 mg/dL (0-0.2) 03/01/19 17:32 Indirect Bilirubin 0.1 mg/dL 03/01/19 17:32 AST 33 units/L (5-40) 03/02/19 05:28 ALT 44 units/L (7-56) 03/02/19 05:28 Alkaline Phosphatase 107 units/L (35-129) 03/02/19 05:28 Total Creatine Kinase 45 units/L (30-135) 03/01/19 11:06 Troponin T < 0.010 ng/mL (0.00-0.029) 03/01/19 11:06 NT-Pro-B Natriuret Pep 2023 pg/mL (0-450) H 03/01/19 11:06 Total Protein 6.0 g/dL (6.3-8.2) L 03/02/19 05:28 Albumin 3.0 g/dL (3.9-5) L 03/02/19 05:28 Albumin/Globulin Ratio 1.0 % 03/02/19 05:28 Active Medications - Current Medications Current Medications: Generic Name Dose Route Start Last Admin Trade Name Freq PRN Reason Stop Dose Admin Acetaminophen 650 mg 03/01/19 16:28 Tylenol PO Q4H PRN Pain MILD(1-3)/Fever >100.5/MORRIS Apixaban 5 mg 03/02/19 22:00 Eliquis PO BID MILAD Protocol Furosemide 40 mg 03/01/19 18:00 03/02/19 06:36 Lasix IV 40 mg 0600,1800 MILAD Administration Hydromorphone HCl 0.5 mg 03/01/19 16:28 03/02/19 04:27 Dilaudid IV 0.5 mg Q3H PRN Administration Pain , Severe (7-10) Lorazepam 2 mg 03/01/19 16:36 Ativan PO Q1H PRN CIWA-Ar 8-15 Ondansetron HCl 4 mg 03/01/19 16:28 Zofran IV Q3H PRN Nausea And Vomiting Oxycodone/Acetaminophen 1 tab 03/01/19 16:25 03/02/19 10:01 Percocet 5/325 PO 1 tab Q6HR PRN Administration Pain, Moderate (4-6) Potassium Chloride 20 meq 03/01/19 17:00 03/02/19 10:01 K-Dur PO 20 meq Q12HR MILAD Administration Quetiapine Fumarate 200 mg 03/01/19 22:00 03/01/19 23:26 Seroquel PO 200 mg QHS MILAD Administration Sodium Chloride 10 ml 03/01/19 22:00 03/02/19 10:02 Sodium Chloride Flush Syringe 10 Ml IV 10 ml BID MILAD Administration Sodium Chloride 10 ml 03/01/19 16:28 Sodium Chloride Flush Syringe 10 Ml IV PRN PRN LINE FLUSH
[2019-03-02] MEDS ORDERED: ALBUTEROL 2.5 MG/3 ML NEBU IH PRN (14:12)
[2019-03-02] MEDS: QUEtiapine 200 MG TAB PO SCH (22:03)
[2019-03-03 06:43] LABS: BUN/Creatinine Ratio 13; Blood Urea Nitrogen 10 mg/dL (7-17); Calcium 8.3 mg/dL (8.4-10.2); Hemolysis Index 22
[2019-03-03] MEDS: FUROSEMIDE 40 MG/4 ML INJ IV SCH (07:05)
[2019-03-03] MEDS: oxyCODONE /ACETAMINOPHEN 5-325MG TAB PO PRN ×2 (10:10→18:31)
[2019-03-03] MEDS: POTASSIUM CHLORIDE ER 20 MEQ TAB PO SCH ×2 (10:10→21:54)
[2019-03-03] MEDS: APIXABAN 5 MG TAB PO SCH ×2 (10:11→21:54)
--- NOTE | 2019-03-03 14:24 | Progress Note ---
Assessment and Plan Assessment and plan: Acute diastolic heart failure with EF of 50-55% -On CHF protocol, improving -Echo showed EF of 50-55% with diastolic dysfunction -Lasix changed to oral Dyspnea with BLE edema -CTA negative for PE -Venous duplex ultrasound negative for DVT Elevated blood pressure without prior diagnosis of hypertension -Probably due to possible alcohol withdrawal, improved -On CIIA protocol Hypokalemia -Improving on repletion, will monitor level Transaminitis -Levels improved History of recent RT LE DVT -Continue home Carol AOCD -H&H stable Bipolar Disorder -Stable -cont Seroquel at bedtime Hx of ETOH Dependency -On cipr protocol -Patient counseled on cessation Asthma -No acute exacerbation -On PRN neb tx Morbid obesity with BMI of 50.2 -Lifestyle modification recommended Deconditioning -PT consulted Tobacco abuse -Cessation recommended DVT prophylaxis: -heparin -scd to ble while in bed Disposition: For possible discharge in am if pt is medically stable History Interval history: She has no new complaints. Her shortness of breath has improved. She denies chest pain. Hospitalist Physical - Constitutional Vitals: Temp Pulse Resp BP Pulse Ox 97.7 F 92 H 20 86/51 96 03/03/19 12:02 03/03/19 12:02 03/03/19 12:02 03/03/19 12:02 03/03/19 12:02 General appearance: Present: no acute distress, obese - EENT Eyes: Present: PERRL, EOM intact ENT: hearing intact, clear oral mucosa - Neck Neck: Present: supple - Respiratory Respiratory effort: normal Respiratory: bilateral: CTA, diminished - Cardiovascular Rhythm: regular Heart Sounds: Present: S1 & S2 - Extremities Extremity abnormal: edema (in BLE improved) - Abdominal General gastrointestinal: soft, non-tender, normal bowel sounds - Integumentary Integumentary: Present: warm, dry - Psychiatric Psychiatric: appropriate mood/affect - Neurologic Neurologic: moves all extremities Results - Labs CBC & Chem 7: 03/02/19 09:38 03/03/19 05:22 Labs: Laboratory Last Values WBC 7.8 K/mm3 (4.5-11.0) 03/02/19 09:38 RBC 4.22 M/mm3 (3.65-5.03) 03/02/19 09:38 Hgb 10.0 gm/dl (10.1-14.3) L 03/02/19 09:38 Hct 32.7 % (30.3-42.9) 03/02/19 09:38 MCV 78 fl (79-97) L 03/02/19 09:38 MCH 24 pg (28-32) L 03/02/19 09:38 MCHC 31 % (30-34) 03/02/19 09:38 RDW 28.7 % (13.2-15.2) H 03/02/19 09:38 Plt Count 274 K/mm3 (140-440) 03/02/19 09:38 Lymph % (Auto) Prestressed Concrete Laborer 03/02/19 09:38 [place] % (Auto) Prestressed Concrete Laborer 03/02/19 09:38 Eos % (Auto) Prestressed Concrete Laborer 03/02/19 09:38 Baso % (Auto) Prestressed Concrete Laborer 03/02/19 09:38 Lymph # Prestressed Concrete Laborer 03/02/19 09:38 [place] # Prestressed Concrete Laborer 03/02/19 09:38 Eos # Prestressed Concrete Laborer 03/02/19 09:38 Baso # Prestressed Concrete Laborer 03/02/19 09:38 Add Manual Diff Complete 03/02/19 09:38 Total Counted 100 03/02/19 09:38 Seg Neutrophils % Prestressed Con[employer] Laborer 03/02/19 09:38 Seg Neuts % (Manual) 60.0 % (40.0-70.0) 03/02/19 09:38 Band Neutrophils % 0 % 03/02/19 09:38 Lymphocytes % (Manual) 35.0 % (13.4-35.0) 03/02/19 09:38 Reactive Lymphs % (Man) 0 % 03/02/19 09:38 Monocytes % (Manual) 4.0 % (0.0-7.3) 03/02/19 09:38 Eosinophils % (Manual) 1.0 % (0.0-4.3) 03/02/19 09:38 Basophils % (Manual) 0 % (0.0-1.8) 03/02/19 09:38 Metamyelocytes % 0 % 03/02/19 09:38 Myelocytes % 0 % 03/02/19 09:38 Promyelocytes % 0 % 03/02/19 09:38 Blast Cells % 0 % 03/02/19 09:38 Nucleated RBC % Not Reportable 03/02/19 09:38 Seg Neutrophils # [employer] Laborer 03/02/19 09:38 Seg Neutrophils # Man 4.7 K/mm3 (1.8-7.7) 03/02/19 09:38 Band Neutrophils # 0.0 K/mm3 03/02/19 09:38 Lymphocytes # (Manual) 2.7 K/mm3 (1.2-5.4) 03/02/19 09:38 Abs React Lymphs (Man) 0.0 K/mm3 03/02/19 09:38 Monocytes # (Manual) 0.3 K/mm3 (0.0-0.8) 03/02/19 09:38 Eosinophils # (Manual) 0.1 K/mm3 (0.0-0.4) 03/02/19 09:38 Basophils # (Manual) 0.0 K/mm3 (0.0-0.1) 03/02/19 09:38 Metamyelocytes # 0.0 K/mm3 03/02/19 09:38 Myelocytes # 0.0 K/mm3 03/02/19 09:38 Promyelocytes # 0.0 K/mm3 03/02/19 09:38 Blast Cells # 0.0 K/mm3 03/02/19 09:38 WBC Morphology Not Reportable 03/02/19 09:38 Hypersegmented Neuts Not Reportable 03/02/19 09:38 Hyposegmented Neuts Not Reportable 03/02/19 09:38 Hypogranular Neuts Not Reportable 03/02/19 09:38 Smudge Cells Not Reportable 03/02/19 09:38 Toxic Granulation Not Reportable 03/02/19 09:38 Toxic Vacuolation Not Reportable 03/02/19 09:38 Dohle Bodies Not Reportable 03/02/19 09:38 Pelger-Huet Anomaly Not Reportable 03/02/19 09:38 Teri Rods Not Reportable 03/02/19 09:38 Platelet Estimate Consistent w auto 03/02/19 09:38 Clumped Platelets Not Reportable 03/02/19 09:38 Plt Clumps, EDTA Not Reportable 03/02/19 09:38 Large Platelets Rare 03/02/19 09:38 Giant Platelets Not Reportable 03/02/19 09:38 Platelet Satelliting Not Reportable 03/02/19 09:38 Plt Morphology Comment Not Reportable 03/02/19 09:38 RBC Morphology Not Reportable 03/02/19 09:38 Dimorphic RBCs Not Reportable 03/02/19 09:38 Polychromasia Not Reportable 03/02/19 09:38 Hypochromasia 1+ 03/02/19 09:38 Poikilocytosis 1+ 03/02/19 09:38 Anisocytosis 2+ 03/02/19 09:38 Microcytosis Few 03/02/19 09:38 Macrocytosis Not Reportable 03/02/19 09:38 Spherocytes Not Reportable 03/02/19 09:38 Pappenheimer Bodies Not Reportable 03/02/19 09:38 Sickle Cells Not Reportable 03/02/19 09:38 Target Cells 1+ 03/02/19 09:38 Tear Drop Cells Not Reportable 03/02/19 09:38 Ovalocytes Few 03/02/19 09:38 Helmet Cells Not Reportable 03/02/19 09:38 Ma-[place] Bodies Not Reportable 03/02/19 09:38 [place] Rings Not Reportable 03/02/19 09:38 [place] Cells Not Reportable 03/02/19 09:38 Bite Cells Not Reportable 03/02/19 09:38 Crenated Cell Not Reportable 03/02/19 09:38 Elliptocytes Not Reportable 03/02/19 09:38 Acanthocytes (Spur) Not Reportable 03/02/19 09:38 Rouleaux Not Reportable 03/02/19 09:38 Hemoglobin C Crystals Not Reportable 03/02/19 09:38 Schistocytes Not Reportable 03/02/19 09:38 Malaria parasites Not Reportable 03/02/19 09:38 Luis Bodies Not Reportable 03/02/19 09:38 Hem Pathologist Commnt No 03/02/19 09:38 PT 16.6 Sec. (12.2-14.9) H 03/01/19 11:06 INR 1.36 (0.87-1.13) H 03/01/19 11:06 APTT 31.1 Sec. (24.2-36.6) 03/01/19 11:06 Sodium 142 mmol/L (137-145) 03/03/19 05:22 Potassium 3.9 mmol/L (3.6-5.0) 03/03/19 05:22 Chloride 98.6 mmol/L (98-107) 03/03/19 05:22 Carbon Dioxide 31 mmol/L (22-30) H 03/03/19 05:22 Anion Gap 16 mmol/L 03/03/19 05:22 BUN 10 mg/dL (7-17) 03/03/19 05:22 Creatinine 0.8 mg/dL (0.7-1.2) 03/03/19 05:22 Estimated GFR > 60 ml/min 03/03/19 05:22 BUN/Creatinine Ratio 13 % 03/03/19 05:22 Glucose 82 mg/dL (65-100) 03/03/19 05:22 Hemoglobin A1c 4.9 % (4-6) 03/01/19 11:06 Calcium 8.3 mg/dL (8.4-10.2) L 03/03/19 05:22 Magnesium 1.70 mg/dL (1.7-2.3) 03/03/19 05:22 Total Bilirubin 0.30 mg/dL (0.1-1.2) 03/02/19 05:28 Direct Bilirubin < 0.2 mg/dL (0-0.2) 03/01/19 17:32 Indirect Bilirubin 0.1 mg/dL 03/01/19 17:32 AST 33 units/L (5-40) 03/02/19 05:28 ALT 44 units/L (7-56) 03/02/19 05:28 Alkaline Phosphatase 107 units/L (35-129) 03/02/19 05:28 Total Creatine Kinase 45 units/L (30-135) 03/01/19 11:06 Troponin T < 0.010 ng/mL (0.00-0.029) 03/01/19 11:06 NT-Pro-B Natriuret Pep 2023 pg/mL (0-450) H 03/01/19 11:06 Total Protein 6.0 g/dL (6.3-8.2) L 03/02/19 05:28 Albumin 3.0 g/dL (3.9-5) L 03/02/19 05:28 Albumin/Globulin Ratio 1.0 % 03/02/19 05:28 Active Medications - Current Medications Current Medications: Generic Name Dose Route Start Last Admin Trade Name Freq PRN Reason Stop Dose Admin Acetaminophen 650 mg 03/01/19 16:28 Tylenol PO Q4H PRN Pain MILD(1-3)/Fever >100.5/MORRIS Albuterol 2.5 mg 03/02/19 14:12 Proventil IH Q4HRT PRN Shortness Of Breath Apixaban 5 mg 03/02/19 22:00 03/03/19 10:11 Eliquis PO 5 mg BID MILAD Administration Protocol Furosemide 40 mg 03/01/19 18:00 03/03/19 07:05 Lasix IV 40 mg 0600,1800 MILAD Administration Lorazepam 2 mg 03/01/19 16:36 Ativan PO Q1H PRN CIWA-Ar 8-15 Ondansetron HCl 4 mg 03/01/19 16:28 Zofran IV Q3H PRN Nausea And Vomiting Oxycodone/Acetaminophen 1 tab 03/01/19 16:25 03/03/19 10:10 Percocet 5/325 PO 1 tab Q6HR PRN Administration Pain, Moderate (4-6) Potassium Chloride 20 meq 03/01/19 17:00 03/03/19 10:10 K-Dur PO 20 meq Q12HR MILAD Administration Quetiapine Fumarate 200 mg 03/01/19 22:00 03/02/19 22:03 Seroquel PO 200 mg QHS MILAD Administration Sodium Chloride 10 ml 03/01/19 22:00 03/03/19 10:12 Sodium Chloride Flush Syringe 10 Ml IV 10 ml BID MILAD Administration Sodium Chloride 10 ml 03/01/19 16:28 Sodium Chloride Flush Syringe 10 Ml IV PRN PRN LINE FLUSH
[2019-03-03] MEDS: FUROSEMIDE 40 MG TAB PO SCH (18:33)
[2019-03-03] MEDS: QUEtiapine 200 MG TAB PO SCH (21:57)
[2019-03-04 08:34] LABS: BUN/Creatinine Ratio 16; Blood Urea Nitrogen 13 mg/dL (7-17); Hemolysis Index 23
--- NOTE | 2019-03-04 11:09 | Discharge Summary ---
Providers - Providers Date of Admission: 03/01/19 16:28 Date of discharge: 03/04/19 Attending physician: CELESTINE COSTELLO 03/01/19 23:48 Physical Therapy Evaluation and Treat [CONS] Routine Comment: Reason For Exam: Limited Mobility Primary care physician: JAMEEL HAWKINS Hospitalization Reason for admission: Acute heart failure Condition: Stable Pertinent studies: -Echo showed EF of 50-55% with diastolic dysfunction -CTA negative for PE -Venous duplex ultrasound negative for DVT Procedures: None Hospital course: Final discharge diagnosis: Acute diastolic heart failure with EF of 50-55% Dyspnea with BLE edema Elevated blood pressure without prior diagnosis of hypertension Hypokalemia, resolved Transaminitis, resolved History of recent RT LE DVT AOCD Bipolar Disorder Hx of ETOH Dependency Asthma Morbid obesity with BMI of 43.8 Deconditioning Tobacco abuse Hospital course: Pt was admitted and placed on CHF protocol in addition to K supplements for hypokalemia. In addition, she was placed on CIWA protocol due to her hx of alcohol dependency. CTA chest and venous duplex US were done for further evaluation which came back neg for PE and DVT respectively. Subsequently, she improved clinically and was then deemed stable for d/c with clinic f/u. Disposition: DC-01 TO HOME OR SELFCARE Time spent for discharge: 38 mins Core Measure Documentation - Palliative Care Palliative Care/ Comfort Measures: Not Applicable - Core Measures Any of the following diagnoses?: heart failure - Heart Failure Discharge Requirements ROB/ARB for LVSD if EF <40%: Not Applicable Beta serina at discharge: No Reason for no beta serina on DC: Hypotension Heart failure comment: BP labile Exam - Constitutional Vitals: Temp Pulse Resp BP Pulse Ox 97.9 F 74 18 97/58 98 03/04/19 07:50 03/04/19 07:50 03/04/19 07:50 03/04/19 07:50 03/04/19 07:50 General appearance: Present: no acute distress, obese - EENT Eyes: Present: PERRL, EOM intact ENT: hearing intact, clear oral mucosa - Neck Neck: Present: supple, normal ROM - Respiratory Respiratory effort: normal Respiratory: bilateral: CTA - Cardiovascular Rhythm: regular Heart Sounds: Present: S1 & S2. Absent: rub, click - Extremities Extremities: No edema - Abdominal General gastrointestinal: Present: soft, non-tender, non-distended, normal bowel sounds - Integumentary Integumentary: Present: clear, warm, dry - Musculoskeletal Musculoskeletal: gait normal, strength equal bilaterally - Psychiatric Psychiatric: appropriate mood/affect - Neurologic Neurologic: CNII-XII intact, moves all extremities Plan Follow up with: PRIMARY CARE, [Referring] - 3-5 Days MERLIN ENRIQUEZ MD [Staff Physician] - 7 Days Prescriptions: QUEtiapine [SEROquel] 200 mg PO QHS #30 tab Furosemide [Lasix TAB] 40 mg PO DAILY #30 tablet
[2019-03-04] MEDS: FUROSEMIDE 40 MG TAB PO SCH (11:10)
[2019-03-04] MEDS: APIXABAN 5 MG TAB PO SCH (11:10)
[2019-03-04] MEDS: oxyCODONE /ACETAMINOPHEN 5-325MG TAB PO PRN (11:10)
[2019-03-04 11:42] VITALS: BP 96/58
== END 2019-03-04 15:56 | disposition home or self-care (01) | DRG 291 ==
LOC: ED 10:16 → 4A 16:28
PROVIDERS: ADMIT Internal Medicine; ATTEND Internal Medicine
PROC: 5A09357 Assistance with Respiratory Ventilation, Less than 24 Consecutive Hours, Continuous Positive Airway Pressure (ICD-10-PCS; principal; 2019-03-03)
DX: I50.31 Acute diastolic (congestive) heart failure (principal); J96.00 Acute respiratory failure, unspecified whether with hypoxia or hypercapnia; Z68.41 Body mass index [BMI] 40.0-44.9, adult; D64.9 Anemia, unspecified; J45.909 Unspecified asthma, uncomplicated; F31.9 Bipolar disorder, unspecified; F41.9 Anxiety disorder, unspecified; E87.6 Hypokalemia; E66.01 Morbid (severe) obesity due to excess calories; R74.0 Nonspecific elevation of levels of transaminase and lactic acid dehydrogenase [LDH]; R03.0 Elevated blood-pressure reading, without diagnosis of hypertension; D63.8 Anemia in other chronic diseases classified elsewhere; F10.21 Alcohol dependence, in remission; Y90.9 Presence of alcohol in blood, level not specified; F17.210 Nicotine dependence, cigarettes, uncomplicated; Z98.84 Bariatric surgery status; Z83.3 Family history of diabetes mellitus; Z82.3 Family history of stroke; Z82.49 Family history of ischemic heart disease and other diseases of the circulatory system; Z88.5 Allergy status to narcotic agent; Z88.0 Allergy status to penicillin; Z88.8 Allergy status to other drugs, medicaments and biological substances; Z91.09 Other allergy status, other than to drugs and biological substances; Z86.718 Personal history of other venous thrombosis and embolism; Z79.899 Other long term (current) drug therapy; Z86.711 Personal history of pulmonary embolism; Z71.6 Tobacco abuse counseling; Z71.41 Alcohol abuse counseling and surveillance of alcoholic; Z71.3 Dietary counseling and surveillance
CPT/HCPCS: 36415; 71045; 71275; 80048; 80053; 80076; 82550; 83036; 83735; 83880; 84484; 85007; 85025; 85610; 85730; 87116; 93005; 93010; 93306; 93970; 94640; 94644; 94660; 94760; 99406; G0378; J1170; J1940; Q9967

== ENCOUNTER 2019-05-09 20:12 | Emergency (ER) | payer MEDICAID ==
[2019-05-09 21:45] VITALS: BP 157/94
--- NOTE | 2019-05-09 22:23 | Emergency Department Report ---
Blank Doc - Documentation Documentation: 48-year-old female that presents with left shoulder pain. This initial assessment/diagnostic orders/clinical plan/treatment(s) is/are subject to change based on patient's health status, clinical progression and re- assessment by fellow clinical providers in the ED. Further treatment and workup at subsequent clinical providers discretion. Patient/guardians urged not to elope from the ED as their condition may be serious if not clinically assessed and managed. Initial orders include: 1- Patient sent to [facility] for further evaluation and treatment 2- xrays
--- NOTE | 2019-05-09 23:24 | XRay Report ---
LEFT SHOULDER 3 VIEWS INDICATION / CLINICAL INFORMATION: shoulder pain COMPARISON: None available. FINDINGS: BONES / JOINT(S): No acute fracture or subluxation. There is mild AC joint degenerative change SOFT TISSUES: No significant abnormality. ADDITIONAL FINDINGS: None. Signer Name: Jag Patiño MD Signed: 05/09/2019 11:20 PM Workstation Name: [id number]
[2019-05-10] MEDS ORDERED: dexAMETHasone 20 MG/5 ML VIAL IM ONE (01:43)
[2019-05-10] MEDS ORDERED: KETOROLAC 30 MG/1 ML INJ IM ONE (01:43)
--- NOTE | 2019-05-10 02:06 | Emergency Department Report ---
Upper Extremity - HPI Chief Complaint: Shoulder Injury Stated Complaint: LEFT ARM PAIN Time Seen by Provider: 05/09/19 22:22 Upper Extremity: Left Shoulder Occurred When: >5 Days Mechanism: Hyperextension, Unsure Severity: moderate Symptoms: Yes Pain with Movement, Yes Limited Range of Movement, No Deformity, No Numbness, No Weakness, No Swelling, No Bruising/Ecchymosis, No Laceration or Abrasion Other History: left lateral shoulder pain 5/10 exacerbated by movement, denies fall , injury, or trauma, states she hyperextended arm 2 weeks ago pain aching since. there is no numbness, no weakness ED Review of Systems ROS: Stated complaint: LEFT ARM PAIN Other details as noted in HPI Constitutional: denies: chills, fever Eyes: denies: eye pain, eye discharge, vision change ENT: denies: ear pain, throat pain Respiratory: denies: cough, shortness of breath, wheezing Cardiovascular: denies: chest pain, palpitations Endocrine: no symptoms reported Gastrointestinal: denies: abdominal pain, nausea, diarrhea Genitourinary: denies: urgency, dysuria, discharge Musculoskeletal: myalgia. denies: joint swelling Skin: denies: rash, lesions Neurological: denies: headache, weakness, paresthesias Psychiatric: denies: anxiety, depression Hematological/Lymphatic: denies: easy bleeding, easy bruising ED Past Medical Hx - Past Medical History Hx Deep Vein Thrombosis: Yes (BLE DVT; R PE 01/2019) Hx Pulmonary Embolism: Yes Hx Psychiatric Treatment: Yes (BIPOLAR; anxiety, depression) Hx Asthma: Yes - Surgical History Additional Surgical History: gastric bypass, excess skin removal - Social History Smoking Status: Unknown if ever smoked Substance Use Type: None - Medications Home Medications: Home Medications Medication Instructions Recorded Confirmed Last Taken Type Apixaban [Eliquis] 5 mg PO DAILY 03/01/19 03/01/19 Unknown History oxyCODONE /ACETAMINOPHEN [Percocet 1 tab PO Q6HR PRN 03/01/19 03/01/19 Unknown History 5/325 mg] Furosemide [Lasix TAB] 40 mg PO DAILY #30 tablet 03/04/19 Unknown Rx QUEtiapine [SEROquel] 200 mg PO QHS #30 tab 03/04/[address] (Nf) 50 mg PO TID PRN #30 tab 05/10/19 Unknown Rx Menthol/Camphor [[place] 1 applicatio TP QID PRN #1 tube 05/10/19 Unknown Rx Ointment] methOCARBAMOL [Robaxin TAB] 500 mg PO TID PRN #30 tablet 05/10/19 Unknown Rx predniSONE [Deltasone] 40 mg PO QDAY 5 Days #10 tab 05/10/19 Unknown Rx Upper Extremity Exam - Exam General: Vital signs noted. No distress. Alert and acting appropriately. Head and Torso: No HEENT Abnormality, No Neck Tenderness, No Chest/Lungs Abnormality, No Abdominal Tenderness, No Back Tenderness Shoulder Exam: Yes Shoulder Tenderness, Yes AC Joint Tenderness, No Clavicle Tenderness, No Normal Range of Motion in Shoulder, No Shoulder Deformity Arm Exam: No Arm/Humerus Tenderness, No Arm Deformity Elbow: Yes Normal Range of Motion in Elbow, No Elbow Tenderness, No Elbow Deformity Forearm: Yes Pain with Pronation, Yes Pain with Supination, No Forearm Tenderness, No Forearm Deformity Wrist: Yes Normal ROM in Wrist, No Wrist Tenderness, No Wrist Deformity, No Snuffbox Tenderness, No Pain with Axial Thumb Compression Hand: Yes Normal ROM in Digit(s), No Hand Tenderness, No Hand Deformity, No Digit Tenderness, No Digit(s) Deformity, No Tendon Dysfunction CMS Exam: Yes Normal Distal Pulses, Yes Normal Capillary Refill, Yes Normal Distal Sensation, No Broken Skin ED Course Vital Signs 05/09/19 05/09/19 20:37 22:05 Temperature 98.7 F 98.7 F Pulse Rate 77 78 Respiratory 18 18 Rate Blood Pressure 157/94 157/94 O2 Sat by Pulse 97 97 Oximetry ED Medical Decision Making - Radiology Data Radiology results: report reviewed, image reviewed Findings [facility] [address] [place] [address] XRay Report Signed Patient: ELIUD WEEKS MR#: [id number] : 1970 Acct:[id number] Age/Sex: 48 / F ADM Date: 05/09/19 Loc: ED Attending Dr: Ordering Physician: RICK JANG NP Date of Service: 05/09/19 Procedure(s): XR shoulder 2+V LT Accession Number(s): [id number] cc: RICK JANG NP Fluoro Time In Minutes: LEFT SHOULDER 3 VIEWS INDICATION / CLINICAL INFORMATION: shoulder pain COMPARISON: None available. FINDINGS: BONES / NATANAEL INT(S): No acute fracture or subluxation. There is mild AC joint degenerative change SOFT TISSUES: No significant abnormality. ADDITIONAL FINDINGS: None. Signer Name: aJg Patiño MD Signed: 05/09/2019 11:20 PM Workstation Name: [id number] Transcribed By: SS Dictated By: Jag Patiño MD Electronically Authenticated By: Jag Patiño MD Signed Date/Time: 05/09/192319 DD/ 18 TD/TT: - Medical Decision Making xray no fracture no dislocation, degenerative AC joint changes, distal pulses +2, pain with shoulder drop, pain with pronation and supination, pain is improved plan: steroids, nsaids, muscle relaxants, follow up with orthopedics in 2-3 days. Critical care attestation.: If time is entered above; I have spent that time in minutes in the direct care of this critically ill patient, excluding procedure time. ED Disposition Clinical Impression: Acromioclavicular joint injury Qualifiers: Encounter type: initial encounter Laterality: left Qualified Code(s): S49.92XA - Unspecified injury of left shoulder and upper arm, initial encounter Shoulder sprain Qualifiers: Encounter type: initial encounter Shoulder sprain type: rotator cuff capsule Laterality: left Qualified Code(s): S43.422A - Sprain of left rotator cuff capsule, initial encounter Disposition: - TO HOME OR SELFCARE Is pt being admited?: No Does the pt Need Aspirin: No Condition: Stable Instructions: Shoulder Sprain (ED) Prescriptions: predniSONE [Deltasone] 40 mg PO QDAY 5 Days #[address] (Nf) 50 mg PO TID PRN #30 tab PRN Reason: pain methOCARBAMOL [Robaxin TAB] 500 mg PO TID PRN #30 tablet PRN Reason: muscle spasm Menthol/Camphor [[place] Ointment] 1 applicatio TP QID PRN #1 tube PRN Reason: pain Referrals: LI SIFUENTES MD [Staff Physician] - 3-5 Days Forms: Work/School Release Form(ED) Time of Disposition: 02:19
[2019-05-10] MEDS ORDERED: HYDROcodone/ACETAMINOPHEN 5-325 MG TAB PO ONE (02:23)
== END 2019-05-10 02:50 | disposition home or self-care (01) ==
LOC: ED 20:12
DX: S43.422A Sprain of left rotator cuff capsule, initial encounter (principal); S49.92XA Unspecified injury of left shoulder and upper arm, initial encounter; F32.9 Major depressive disorder, single episode, unspecified; F41.9 Anxiety disorder, unspecified; J45.909 Unspecified asthma, uncomplicated; Z86.711 Personal history of pulmonary embolism; Z98.84 Bariatric surgery status; Z79.899 Other long term (current) drug therapy; Z88.0 Allergy status to penicillin; Z88.8 Allergy status to other drugs, medicaments and biological substances; X50.0XXA Overexertion from strenuous movement or load, initial encounter; Y93.89 Activity, other specified; Y92.89 Other specified places as the place of occurrence of the external cause; Y99.8 Other external cause status
CPT/HCPCS: 73030; 96372; 99283; J1100; J1885

== ENCOUNTER 2019-06-02 21:05 | Emergency (ER) | payer MEDICAID ==
[2019-06-03] MEDS ORDERED: SULFAMETHOXAZOLE/TRIMETHOPRIM 800/160MG DS TAB PO ONE (04:06)
[2019-06-03] MEDS ORDERED: KETOROLAC 30 MG/1 ML INJ IV ONE (04:06)
[2019-06-03] MEDS ORDERED: ONDANSETRON 4 MG/2 ML INJ IV ONE (04:06)
[2019-06-03] MEDS ORDERED: oxyCODONE /ACETAMINOPHEN 5-325MG TAB PO ONE (04:07)
[2019-06-03 04:48] LABS: Basophils % (Auto) 0.6 % (0.0-1.8); Eosinophils # (Auto) 0.2 K/mm3 (0.0-0.4); Eosinophils % (Auto) 2.2 % (0.0-4.3); Hematocrit 36.3 % (30.3-42.9); Hemoglobin 11.3 gm/dl (10.1-14.3); Lymphocytes # (Auto) 1.9 K/mm3 (1.2-5.4); Lymphocytes % (Auto) 26.9 % (13.4-35.0); Mean Corpuscular HGB Conc 31 % (30-34); Mean Corpuscular Volume 79 fl (79-97); Monocytes # (Auto) 0.5 K/mm3 (0.0-0.8); Monocytes % (Auto) 7.1 % (0.0-7.3); Platelet Count 262 K/mm3 (140-440); Red Blood Count 4.62 M/mm3 (3.65-5.03)
[2019-06-03 05:01] LABS: Alanine Aminotransferase 16 units/L (7-56); Albumin 3.8 g/dL (3.9-5); BUN/Creatinine Ratio 12; Blood Urea Nitrogen 7 mg/dL (7-17); Calcium 9.3 mg/dL (8.4-10.2); Hemolysis Index 2
[2019-06-03 05:34] LABS: Red Cell Distribution Width 21.1 % (13.2-15.2)
--- NOTE | 2019-06-03 05:40 | Emergency Department Report ---
ED Abdominal Pain HPI - General Chief Complaint: Abdominal Pain Stated Complaint: FLANK PAIN/CHILLS Source: patient, EMS Mode of arrival: Ambulatory Limitations: No Limitations - History of Present Illness Initial Comments: Patient is a 48-year-old -[place] female with a history of DVT and PE, as well as asthma who presents to the ED with complaint of acute onset persis tent painful swollen erythematous maculopapular rash with purulent discharge in the left lower quadrant area for 2 days with nausea and vomiting. Patient states that the pain radiates to the left flank and suprapubic area. Patient denies fever, chills, dizziness, headache, dysuria, urinary frequency and urgency, change in vision, cough, sore throat, chest pain, shortness of breath, vaginal bleeding, diarrhea, vaginal discharge, low back pain or syncope. MD Complaint: abdominal pain, flank pain (left), other (swollen erythematous LLQ rash with purulent discharge) -: Sudden, days(s) (2) Location: LLQ, L flank Radiation: LLQ, L flank Migration to: no migration Severity scale (0 -10): 7 Quality: aching, sharp Consistency: constant Improves With: nothing Worsens With: movement Context: other (spontaneous) Associated Symptoms: denies other symptoms, nausea, vomiting, anorexia. denies: diarrhea, fever, chills, dysuria, hematochezia, melena, hematuria - Related Data Home Medications Medication Instructions Recorded Confirmed Last Taken Apixaban [Eliquis] 5 mg PO DAILY 03/01/19 03/01/19 Unknown oxyCODONE /ACETAMINOPHEN [Percocet 1 tab PO Q6HR PRN 03/01/19 03/01/19 Unknown 5/325 mg] Previous Rx's Medication Instructions Recorded Last Taken Type Furosemide [Lasix TAB] 40 mg PO DAILY #30 tablet 03/04/19 Unknown Rx QUEtiapine [SEROquel] 200 mg PO QHS #30 tab 03/04/[address] (Nf) 50 mg PO TID PRN #30 tab 05/10/19 Unknown Rx Menthol/Camphor [[place] 1 applicatio TP QID PRN #1 tube 05/10/19 Unknown Rx Ointment] methOCARBAMOL [Robaxin TAB] 500 mg PO TID PRN #30 tablet 05/10/19 Unknown Rx predniSONE [Deltasone] 40 mg PO QDAY 5 Days #10 tab 05/10/19 Unknown Rx Clindamycin [Clindamycin CAP] 300 mg PO Q8HR #60 capsule 06/03/19 Unknown Rx Ibuprofen [Motrin] 800 mg PO Q8HR PRN #30 tablet 06/03/19 Unknown Rx Ondansetron [Zofran Odt] 4 mg PO Q6HR PRN #20 tab.rapdis 06/03/19 Unknown Rx Sulfamethoxazole/Trimethoprim 1 each PO Q12H #20 tablet 06/03/19 Unknown Rx [Bactrim DS TAB] traMADoL [Ultram] 50 mg PO Q6HR PRN #12 tablet 06/03/19 Unknown Rx Allergies Allergy/AdvReac Type Severity Reaction Status Date / Time acetaminophen Allergy Unknown Verified 03/01/19 12:26 [From Tylenol-Codeine #3] codeine Allergy Unknown Verified 03/01/19 12:26 [From Tylenol-Codeine #3] morphine Allergy Rash Verified 07/14/16 02:42 Penicillins AdvReac Unknown Verified 04/13/15 23:10 ED Review of Systems ROS: Stated complaint: FLANK PAIN/CHILLS Other details as noted in HPI Constitutional: malaise. denies: chills, fever Eyes: denies: eye pain, eye discharge, vision change ENT: denies: ear pain, throat pain Respiratory: denies: cough, shortness of breath, wheezing Cardiovascular: denies: chest pain, palpitations Endocrine: no symptoms reported Gastrointestinal: abdominal pain (Left lower quadrant), nausea, vomiting. denies: diarrhea Genitourinary: denies: urgency, dysuria, discharge Musculoskeletal: denies: back pain, joint swelling, arthralgia Skin: rash (Erythematous maculopapular fluctuant rash with thick purulent discharge on left lower quadrant area), change in color. denies: lesions Neurological: denies: headache, weakness, paresthesias Psychiatric: denies: anxiety, depression Hematological/Lymphatic: denies: easy bleeding, easy bruising ED Past Medical Hx - Past Medical History Hx Deep Vein Thrombosis: Yes (BLE DVT; R PE 01/2019) Hx Pulmonary Embolism: Yes Hx Psychiatric Treatment: Yes (BIPOLAR; anxiety, depression) Hx Asthma: Yes - Surgical History Additional Surgical History: gastric bypass, excess skin removal - Social History Smoking Status: Unknown if ever smoked Substance Use Type: None - Medications Home Medications: Home Medications Medication Instructions Recorded Confirmed Last Taken Type Apixaban [Eliquis] 5 mg PO DAILY 03/01/19 03/01/19 Unknown History oxyCODONE /ACETAMINOPHEN [Percocet 1 tab PO Q6HR PRN 03/01/19 03/01/19 Unknown History 5/325 mg] Furosemide [Lasix TAB] 40 mg PO DAILY #30 tablet 03/04/19 Unknown Rx QUEtiapine [SEROquel] 200 mg PO QHS #30 tab 03/04/[address] (Nf) 50 mg PO TID PRN #30 tab 05/10/19 Unknown Rx Menthol/Camphor [[place] 1 applicatio TP QID PRN #1 tube 05/10/19 Unknown Rx Ointment] methOCARBAMOL [Robaxin TAB] 500 mg PO TID PRN #30 tablet 05/10/19 Unknown Rx predniSONE [Deltasone] 40 mg PO QDAY 5 Days #10 tab 05/10/19 Unknown Rx Clindamycin [Clindamycin CAP] 300 mg PO Q8HR #60 capsule 06/03/19 Unknown Rx Ibuprofen [Motrin] 800 mg PO Q8HR PRN #30 tablet 06/03/19 Unknown Rx Ondansetron [Zofran Odt] 4 mg PO Q6HR PRN #20 tab.rapdis 06/03/19 Unknown Rx Sulfamethoxazole/Trimethoprim 1 each PO Q12H #20 tablet 06/03/19 Unknown Rx [Bactrim DS TAB] traMADoL [Ultram] 50 mg PO Q6HR PRN #12 tablet 06/03/19 Unknown Rx ED Physical Exam - General Limitations: No Limitations General appearance: alert, in no apparent distress - Head Head exam: Present: atraumatic, normocephalic, normal inspection - Eye Eye exam: Present: normal appearance, PERRL, EOMI Pupils: Present: normal accommodation - ENT ENT exam: Present: normal exam, normal orophraynx, mucous membranes moist, TM's normal bilaterally, normal external ear exam - Neck Neck exam: Present: normal inspection, full ROM. Absent: tenderness - Respiratory Respiratory exam: Present: normal lung sounds bilaterally. Absent: respiratory distress, wheezes, rhonchi, chest wall tenderness, decreased breath sounds, prolonged expiratory - Cardiovascular Cardiovascular Exam: Present: regular rate, normal rhythm, normal heart sounds. Absent: systolic murmur, diastolic murmur, rubs, gallop - GI/Abdominal GI/Abdominal exam: Present: soft, tenderness (Palpable left lower quadrant tenderness with guarding due to erythematous maculopapular fluctuant rash with thick purulent discharge), guarding, normal bowel sounds. Absent: hyperactive bowel sounds, hypoactive bowel sounds, organomegaly, bruit - Extremities Exam Extremities exam: Present: normal inspection, full ROM, normal capillary refill - Back Exam Back exam: Present: normal inspection, full ROM. Absent: tenderness, muscle spasm, paraspinal tenderness, vertebral tenderness - Neurological Exam Neurological exam: Present: alert, oriented X3, CN II-XII intact, normal gait, reflexes normal - Psychiatric Psychiatric exam: Present: normal affect, normal mood - Skin Skin exam: Present: warm, dry, intact, normal color, rash (Erythematous maculopapular fluctuant rash with thick purulent discharge in left lower quadrant area), erythema ED Course Vital Signs 06/02/19 06/02/19 21:24 21:27 Temperature 99.2 F 99.2 F Pulse Rate 88 Respiratory 16 16 Rate Blood Pressure 142/86 Blood Pressure 142/86 [Right] O2 Sat by Pulse 100 Oximetry ED Medical Decision Making - Lab Data Result diagrams: 06/03/19 04:30 06/03/19 04:30 - Radiology Data Radiology results: report reviewed, image reviewed Findings [facility] [address] [place] [address] Cat Scan Report Signed Patient: ELIUD WEEKS MR#: [id number] : 1970 Acct:[id number] Age/Sex: 48 / F ADM Date: 06/02/19 Loc: ED Attending Dr: Ordering Physician: GERALDINE GERARDO Date of Service: 06/03/19 Procedure(s): CT abdomen pelvis w con Accession Number(s): [id number] cc: GERALDINE GERARDO CT of the abdomen and pelvis with contrast INDICATION: Left lower quadrant pain, abdominal wall abscess COMPARISON: 07/21/2016 FINDINGS: Lung bases are clear. The liver, spleen, pancreas, adrenal glands and right kidney are normal. There has been prior gastric bypass. A left upper pole cyst is unchanged with the left kidney otherwise normal. No definite gallbladder or biliary tree abnormality. No fluid or adenopathy in the upper abdomen. CT of the pelvis shows no uterine or adnexal masses. There is no diverticulosis or diverticulitis. Appendix is not seen. There has been prior bowel resection. No pelvic fluid or adenopathy. There is no pelvic or abdominal wall abscess. There is however an area of induration and skin thickening involving the left lateral abdominal wall although I cannot identify any definite discrete abscess in this area. There is no underlying fistula and again no intraperitoneal abnormality. IMPRESSION: Left lower abdominal wall inflammatory process presumably focal cellulitis without definite drainable abscess seen. Otherwise no significant abnormality. Automated exposure control was utilized to diminish radiation dose. Signer Name: Jarrett Angela MD Signed: 06/03/2019 6:37 AM Workstation Name: [id number] Transcribed By: [place] Dictated By: Jarrett Angela MD Electronically Authenticated By: Jarrett Angela MD Signed Date/Time: 06/03/19636 DD/ 1 TD/TT: - Medical Decision Making This is a 48-year-old female who presented to the ED with painful swollen erythematous maculopapular rash with purulent discharge in left lower quadrant area with nausea and vomiting for the last 2 days. In the ED, patient is alert and oriented x3 and is not in distress. Patient was treated for pain and also given antibiotics clindamycin 900 mg IV x1 as well as Bactrim DS 1 tablet x 1 by mouth. Patient also received normal saline 1 L IV bolus x1. Lab test results were reviewed and are all nonactionable. Abdomen pelvis CT scan with contrast shows left lower abdominal wall inflammatory process presumably focal cellulitis without definite drainable abscess seen. Otherwise no significant abnormality. On reevaluation, patient's pain is well controlled with medications. Patient fell asleep in the room and in no distress. Patient was discharged home on oral antibiotics and pain medications and antiemetics, and was advised to follow-up with her primary care physician in 7 to 10 days for reevaluation or return to the ED immediately if symptoms get worse. - Differential Diagnosis cellulitis; abscess of abdominal wall; diverticulitis; UTI; Kidney stones Critical care attestation.: If time is entered above; I have spent that time in minutes in the direct care of this critically ill patient, excluding procedure time. ED Disposition Clinical Impression: Abdominal pain, LLQ (left lower quadrant), Cellulitis of left abdominal wall, Nausea and vomiting in adult Disposition: DC-01 TO HOME OR SELFCARE Is pt being admited?: No Does the pt Need Aspirin: No Condition: Stable Instructions: Cellulitis (ED), Acute Nausea and Vomiting (ED), Abscess (ED), Abdominal Pain (ED) Additional Instructions: Take medications with food, drink plenty of fluids and follow-up with your primary care physician in 7 to 10 days for reevaluation. Return to the ED immediately if symptoms get worse. Prescriptions: Sulfamethoxazole/Trimethoprim [Bactrim DS TAB] 1 each PO Q12H #20 tablet Clindamycin [Clindamycin CAP] 300 mg PO Q8HR #60 capsule Ibuprofen [Motrin] 800 mg PO Q8HR PRN #30 tablet PRN Reason: Pain , Severe (7-10) traMADoL [Ultram] 50 mg PO Q6HR PRN #12 tablet PRN Reason: Pain Ondansetron [Zofran Odt] 4 mg PO Q6HR PRN #20 tab.rapdis PRN Reason: Nausea Referrals: [facility] [Outside] - 7-10 days Time of Disposition: 05:44 Print Language: OMANI
[2019-06-03 06:00] LABS: Bacteria,Urine 1+ /HPF (Negative); Bilirubin,Urine NEG (Negative); Blood,Urine NEG (Negative); Color,Urine Yellow (Yellow); Mucus,Urine FEW /HPF; Protein,Urine <15 mg/dL mg/dL (Negative)
--- NOTE | 2019-06-03 06:41 | Cat Scan Report ---
CT of the abdomen and pelvis with contrast INDICATION: Left lower quadrant pain, abdominal wall abscess COMPARISON: 07/21/2016 FINDINGS: Lung bases are clear. The liver, spleen, pancreas, adrenal glands and right kidney are norm al. There has been prior gastric bypass. A left upper pole cyst is unchanged with the left kidney oth erwise normal. No definite gallbladder or biliary tree abnormality. No fluid or adenopathy in the upp er abdomen. CT of the pelvis shows no uterine or adnexal masses. There is no diverticulosis or diverticulitis. Ap pendix is not seen. There has been prior bowel resection. No pelvic fluid or adenopathy. There is no pelvic or abdominal wall abscess. There is however an area of induration and skin thickening involvin g the left lateral abdominal wall although I cannot identify any definite discrete abscess in this ar ea. There is no underlying fistula and again no intraperitoneal abnormality. IMPRESSION: Left lower abdominal wall inflammatory process presumably focal cellulitis without defini te drainable abscess seen. Otherwise no significant abnormality. Automated exposure control was utilized to diminish radiation dose. Signer Name: Jarrett Angela MD Signed: 06/03/2019 6:37 AM Workstation Name: [id number]
[2019-06-03] MEDS ORDERED: SODIUM CHLORIDE 0.9% 1000 ML 1,000 ML IV ONE (07:24)
[2019-06-03 09:20] VITALS: BP 105/61
== END 2019-06-03 09:25 | disposition home or self-care (01) ==
LOC: ED 21:05
DX: L03.311 Cellulitis of abdominal wall (principal); R11.2 Nausea with vomiting, unspecified; Z86.718 Personal history of other venous thrombosis and embolism; Z79.01 Long term (current) use of anticoagulants; Z86.711 Personal history of pulmonary embolism; F31.9 Bipolar disorder, unspecified; Z79.899 Other long term (current) drug therapy; Z88.0 Allergy status to penicillin; Z88.6 Allergy status to analgesic agent
CPT/HCPCS: 36415; 74177; 80053; 81001; 83690; 84703; 85025; 96361; 96365; 96375; 99284; J1885; J2405; J7030; Q9967